=== PATIENT | male | born 1960 | race Caucasian/White ===

== ENCOUNTER 2019-03-09 22:33 | Inpatient (IN) | payer BC, OTHER, SELFPAY ==
[2019-03-09 23:00] VITALS: BP 127/75; PULSE 68; RESP 24; TEMP 36.6; O2SAT 96; BMI 39.9
[2019-03-09 23:52] LABS: Add Manual Diff / Slide Review NO; Alanine Aminotransferase 33 IU/L (21-72); Albumin 4.3 g/dL (3.5-5.0); Albumin Globulin Ratio 1.4 (1.0-2.8); Alkaline Phosphatase 73 U/L (38-126); Aspartate Aminotransferase 24 IU/L (17-59); BUN Creatinine Ratio 18.9 (6-22); Basophils Absolute Auto 0 /uL (0-100); Basophils Percent Auto 0.4 % (0-2); Bilirubin Total 0.7 mg/dL (0.2-1.3); Blood Urea Nitrogen 17 mg/dL (9-20); Calcium 9.4 mg/dL (8.4-10.2); Carbon Dioxide 23 mmol/L (22-32); Chloride 104 mmol/L (98-107); Eosinophils Absolute Auto 0 /uL (0-450); Eosinophils Percent Auto 0.3 % (2-4); Estimated Glomerular Filt Rate > 60.0 mL/min (>60); Glucose 227 mg/dL (70-100); HEMOLYSIS 17 (0-50); Hematocrit 46.7 % (41-53); Lymphocytes Absolute Auto 1600 /uL (1100-4500); Mean Corpuscular HGB Conc 34.2 % (30-36); Mean Corpuscular Hemoglobin 29.5 PG (26-34); Mean Corpuscular Volume 86.2 fL (80-100); Monocytes Absolute Auto 600 /uL (0-900); Monocytes Percent Auto 4.7 % (3-14); Neutrophils Absolute Auto 11200 /uL (1500-7000); Neutrophils Percent Auto 82.6 % (50-75); Platelet Count 219 X10^3/uL (150-400); Red Blood Cell Count 5.42 X10^6/uL (4.5-5.9); Red Cell Distribution Width 13.4 % (11.6-14.8); Sodium 139 mmol/L (137-145); Total Protein 7.3 g/dL (6.3-8.2); White Blood Cell Count 13.5 X10^3/uL (4.5-11.0)
[2019-03-10] VITALS (13 sets, daily range): BP systolic 123–172; BP diastolic 66–98; PULSE 61–105; RESP 15–22; TEMP 36.7–36.9; O2SAT 92–98; BMI 39.9
[2019-03-10] MEDS: SODIUM CHLORIDE 0.9% 1,000 ML 150 ML IV
--- NOTE | 2019-03-10 00:07 | ED.ABDPAIN ---
HPI - Abdominal Pain General Chief Complaint: Abdominal Pain Stated Complaint: NAUSEA, VOMITING Time Seen by Provider: 03/10/19 00:07 Source: patient Mode of arrival: ambulatory Limitations: no limitations History of Present Illness HPI narrative: The patient was well when he woke this morning. He went out for lunch. He had chicken fajitas. Within 1/2 hour after eating a lunch, he developed epigastric pain with nausea and vomiting. He is experienced several episodes of emesis throughout the day. He has severe upper abdominal pain. He has no associated back pain. He has no diarrhea. He has not been experiencing fever or chills. He has no known gallbladder disease, liver disease or stomach problems. He has no prior history of abdomen/pelvis surgeries. He has no dysuria or hematuria. He has no kidney disease. He has not been experiencing fever chills. Related Data Previous Rx's Medication Instructions Recorded famciclovir 250 mg PO SEE INSTRUCTIONS PRN #30 02/24/17 tab hydrochlorothiazide 25 mg PO QDAY #30 tab 02/24/17 lisinopril [Prinivil] 20 mg PO Q DAY #30 tab 02/24/17 Allergies Allergy/AdvReac Type Severity Reaction Status Date / Time DAIRY Allergy Mild MILK,CHEESE- Uncoded 02/03/18 12:03 COUGH NO KNOWN DRUG ALLERGIES - Allergy Unknown Uncoded 02/03/18 12:03 NKDA Review of Systems Review of Systems ROS Unobtainable: All systems reviewed & are unremarkable except as noted in HPI and below Constitutional Denies chills, Denies fever(s), Denies headache(s), Denies lethargy and Denies weakness Eyes Denies change in vision ENT Ears, Nose, Mouth, and Throat: Denies change in voice, Denies dizziness, Denies headache(s), Denies mouth pain, Denies neck pain, Denies sore throat and Denies throat swelling Cardiovascular Denies chest pain, Denies irregular heart rhythm, Denies lightheadedness, Denies palpitations, Denies dyspnea, Denies dyspnea on exertion and Denies orthopnea Respiratory Denies cough, Denies dyspnea, Denies dyspnea on exertion and Denies wheezing Gastrointestinal Gastrointestinal: Reports abdominal pain (Upper abdomen), Denies change in bowel habits, Denies diarrhea, Reports nausea and Reports vomiting Genitourinary Denies genital pain, Denies dysuria and Denies flank pain Musculoskeletal Denies back pain and Denies neck pain Integumentary/Breasts Denies pruritus, Denies erythema, Denies rash and Denies wounds Neurologic Denies confusion, Denies dizziness, Denies headache(s) and Denies weakness Psychiatric Denies anxiety, Denies confusion and Denies depression Endocrine Denies palpitations Allergic/Immunologic Denies throat swelling and Denies wheezing [facility] Medical History (Updated 03/10/19 @ 04:48 by Mckay Uriostegui MD) Essential hypertension (Acute) Hypertension (Acute) Surgical History History of umbilical hernia repair (Acute) Family History Child Age: 30 Bipolar 1 disorder Father Diabetes mellitus Mother Age: 84 Hypertension Stroke Sister Age: 59 Diabetes mellitus Family History Child Age: 30 Bipolar 1 disorder Father Diabetes mellitus Mother Age: 84 Hypertension Stroke Sister Age: 59 Diabetes mellitus Exam Initial Vital Signs Initial Vital Signs: Vital Signs Temperature 97.9 F 03/09/19 23:00 Pulse Rate 68 03/09/19 23:00 Respiratory Rate 24 03/09/19 23:00 Blood Pressure 127/75 03/09/19 23:00 Pulse Oximetry 96 03/09/19 23:00 Const General: cooperative and well developed Nutritional Appearance: well nourished Orientation: alert, awake, oriented x3 and not confused [facility] Head: normocephalic and atraumatic Face and sinus: no sinus tenderness and No dry mucous membranes Mouth: oral mucosae normal and moist mucous membranes Teeth and gingiva: dentition normal Throat: tonsils normal and uvula midline Eyes Conjunctivae: conjunctivae normal Sclera: sclerae normal Neck Neck: supple and No lymphadenopathy Resp Effort & Inspection: normal respiratory effort, able to speak in complete sentences, no respiratory distress and no use of accessory muscles Auscultation: clear to auscultation bilaterally, no rales, no rhonchi and no wheezes Cardio Rate: regular rate Rhythm: regular rhythm Heart Sounds: no click, no gallops, no murmurs and no rubs Pulses: normal peripheral pulses GI Inspection: non-distended Palpation: soft, no hepatosplenomegaly, No pulsatile mass and tender (Marked epigastric tenderness with guarding.) Auscultation: normal bowel sounds Back/Spine/Pelvis Back: No CVA tenderness Skin General: no rashes or lesions noted, No jaundice and No petechiae Neuro General: alert, oriented x3, gait normal and no focal motor deficits Speech: speech normal Extrem General: full ROM, no clubbing, cyanosis or edema, no pedal edema and no calf tenderness Course Course Narrative: The patient has improved with IV fluids in the medications for pain and nausea. He has received Toradol with 3 doses of Dilaudid prior to admission. Labs, and radiologic processes indicate pancreatitis. There is no obvious acute cholecystitis. The patient is ongoing bowel rest and pain medications. I discussed his case with the hospitalist, EDGAR Amin. The patient will be admitted for bowel rest and symptomatic treatment. Orders Ordered: ED Orders 03/09/19 23:30 Complete Blood Count AUTO DIFF Stat Comprehensive Metabolic Panel Stat Lipase Stat 03/10/19 01:42 US abdomen limited Stat 03/10/19 02:30 CT abdomen pelvis w con Stat 03/10/19 04:19 Education, smoking cessation ONGOING 03/10/19 05:00 Complete Blood Count AUTO DIFF Routine Comprehensive Metabolic Panel Routine Acetaminophen (Tylenol) 650 mg PO Q6HR PRN PRN Reason: As Needed for Fever/Mild Pain Hydromorphone HCl (Dilaudid) 1 mg IV Q2H PRN PRN Reason: Pain, Severe (7-10) Sodium Chloride (Normal Saline 0.9%) 1,000 mls @ 150 mls/hr IV CONT [facility] Last Admin: 03/10/19 00:00 Dose: 150 mls/hr Sodium Chloride (Normal Saline 0.9%) 1,000 mls @ 100 mls/hr IV CONT KIERA Ketorolac Tromethamine (Toradol) 30 mg IV Q6HR PRN PRN Reason: Pain, Moderate (4-6) Stop: 03/15/19 04:21 Lisinopril (Zestril) 20 mg PO Q DAY [facility] Naloxone HCl (Narcan) 0.2 mg IV Q2MIN PRN PRN Reason: Opiate Reversal Ondansetron HCl (Zofran) 4 mg IV Q6HR KIERA Discontinued Medications Hydromorphone HCl (Dilaudid) 1 mg IV NOW ONE Stop: 03/10/19 00:41 Last Admin: 03/10/19 00:42 Dose: 1 mg Hydromorphone HCl (Dilaudid) 1 mg IV NOW ONE Stop: 03/10/19 01:28 Last Admin: 03/10/19 01:30 Dose: 1 mg Hydromorphone HCl (Dilaudid) 1 mg IV NOW ONE Stop: 03/10/19 04:03 Last Admin: 03/10/19 04:21 Dose: 1 mg Ketorolac Tromethamine (Toradol) 30 mg IV NOW ONE Stop: 03/10/19 00:08 Last Admin: 03/10/19 00:13 Dose: 30 mg Ondansetron HCl (Zofran) 4 mg IV NOW ONE Stop: 03/10/19 00:08 Last Admin: 03/10/19 00:13 Dose: 4 mg Pantoprazole Sodium (Protonix) 40 mg IV NOW ONE Stop: 03/10/19 00:10 Last Admin: 03/10/19 00:14 Dose: 40 mg Vital Signs - 8 hr 03/09/19 23:00 03/10/19 00:53 03/10/19 02:00 Temperature 97.9 F Pulse Rate 68 61 69 Respiratory Rate 24 20 16 Blood Pressure 127/75 Blood Pressure [Left Arm] 172/98 H 153/95 H Pulse Oximetry 96 97 94 03/10/19 04:02 Temperature Pulse Rate 72 Respiratory Rate 15 Blood Pressure Blood Pressure [Left Arm] 157/93 H Pulse Oximetry 95 MDM - Abdominal Pain Lab Data Result diagrams: 03/09/19 23:30 03/09/19 23:30 Lab Results 03/09/19 03/09/19 Range/Units 23:30 23:30 WBC 13.5 H (4.5-11.0) X10^3/uL RBC 5.42 (4.5-5.9) X10^6/uL Hgb 16.0 (13.5-17.5) g/dL Hct 46.7 (41-53) % MCV 86.2 (80-100) fL MCH 29.5 (26-34) PG MCHC 34.2 (30-36) % RDW 13.4 (11.6-14.8) % Plt Count 219 (150-400) X10^3/uL Neut % (Auto) 82.6 H (50-75) % Lymph % (Auto) 12.0 L (25-40) % [place] % (Auto) 4.7 (3-14) % Eos % (Auto) 0.3 L (2-4) % Baso % (Auto) 0.4 (0-2) % Neut # (Auto) 51976 H (4151-6520) /uL Lymph # (Auto) 1600 (1695-8448) /uL [place] # (Auto) 600 (0-900) /uL Eos # (Auto) 0 (0-450) /uL Baso # (Auto) 0 (0-100) /uL Sodium 139 (137-145) mmol/L Potassium 4.0 (3.4-5.1) mmol/L Chloride 104 (98-107) mmol/L Carbon Dioxide 23 (22-32) mmol/L BUN 17 (9-20) mg/dL Creatinine 0.90 (0.66-1.25) mg/dL Estimated GFR > 60.0 (>60) mL/min BUN/Creatinine Ratio 18.9 (6-22) Glucose 227 H (70-100) mg/dL Calcium 9.4 (8.4-10.2) mg/dL Total Bilirubin 0.7 (0.2-1.3) mg/dL AST 24 (17-59) IU/L ALT 33 (21-72) IU/L Alkaline Phosphatase 73 (38-126) U/L Total Protein 7.3 (6.3-8.2) g/dL Albumin 4.3 (3.5-5.0) g/dL Globulin 3.0 (1.7-4.1) g/dL Albumin/Globulin Ratio 1.4 (1.0-2.8) Lipase 45584 H (23-300) U/L Imaging Data US - abdomen: Radiologist's impression: Normal [place] is a pancreas. Fatty infiltration of the liver. 2.5 mm borderline thickness of the gallbladder wall. The proximal CBD has a diameter of [address] scan - abdomen: Radiologist's impression: Pancreatic fullness and retroperitoneal peripancreatic stranding and fluid/effusion of the left anterior pararenal space. Fluid along the left pericolic gutter. No necrosis mention. No abscess seen. Critical Care Time Critical Care Time: Yes Total Critical Care Time: 45 Attestation: Time included the initial assessment, evaluation by labs, and a series of radiologic evaluations. Time included management of patient's symptoms. Hospitalist was consulted for admission. Discharge Plan Departure Patient Disposition: Admitted as Observation Clinical Impression: Acute hyperglycemia Pancreatitis Qualifiers: Chronicity: acute Pancreatitis type: unspecified pancreatitis type Acute pancreatitis complication: no infection or necrosis Qualified Code(s): K85.90 - Acute pancreatitis without necrosis or infection, unspecified Discharge Date/Time: 03/10/19 04:16 Admit Date/Time: 03/10/19 04:15 Admit Provider: Ashley Amin
[2019-03-10 00:11] LABS: Lipase 14280 U/L (23-300)
[2019-03-10] MEDS: KETOROLAC 60 MG/2 ML VIAL 30 MG IV (00:13)
[2019-03-10] MEDS: ONDANSETRON 4 MG/2 ML INJ IV (00:13)
[2019-03-10] MEDS: PANTOPRAZOLE 40 MG VIAL IV (00:14)
[2019-03-10] MEDS: HYDROMORPHONE 1 MG INJ IV ×9 (00:42→23:48)
--- NOTE | 2019-03-10 00:45 | ED_ITS ---
HPI - Abdominal Pain General Chief Complaint: Abdominal Pain Stated Complaint: NAUSEA, VOMITING Time Seen by Provider: 03/10/19 00:07 Source: patient Mode of arrival: ambulatory Limitations: no limitations History of Present Illness HPI narrative: The patient was well when he woke this morning. He went out for lunch. He had chicken fajitas. Within 1/2 hour after eating a lunch, he developed epigastric pain with nausea and vomiting. He is experienced several episodes of emesis throughout the day. He has severe upper abdominal pain. He has no associated back pain. He has no diarrhea. He has not been experiencing fever or chills. He has no known gallbladder disease, liver disease or stomach problems. He has no prior history of abdomen/pelvis surgeries. He has no dysuria or hematuria. He has no kidney disease. He has not been experiencing fever chills. Related Data Previous Rx's Medication Instructions Recorded famciclovir 250 mg PO SEE INSTRUCTIONS PRN #30 02/24/17 tab hydrochlorothiazide 25 mg PO QDAY #30 tab 02/24/17 lisinopril [Prinivil] 20 mg PO Q DAY #30 tab 02/24/17 Allergies Allergy/AdvReac Type Severity Reaction Status Date / Time DAIRY Allergy Mild MILK,CHEESE- Uncoded 02/03/18 12:03 COUGH NO KNOWN DRUG ALLERGIES - Allergy Unknown Uncoded 02/03/18 12:03 NKDA Review of Systems Review of Systems ROS Unobtainable: All systems reviewed & are unremarkable except as noted in HPI and below Constitutional Denies chills, Denies fever(s), Denies headache(s), Denies lethargy and Denies weakness Eyes Denies change in vision ENT Ears, Nose, Mouth, and Throat: Denies change in voice, Denies dizziness, Denies headache(s), Denies mouth pain, Denies neck pain, Denies sore throat and Denies throat swelling Cardiovascular Denies chest pain, Denies irregular heart rhythm, Denies lightheadedness, Denies palpitations, Denies dyspnea, Denies dyspnea on exertion and Denies orthopnea Respiratory Denies cough, Denies dyspnea, Denies dyspnea on exertion and Denies wheezing Gastrointestinal Gastrointestinal: Reports abdominal pain (Upper abdomen), Denies change in bowel habits, Denies diarrhea, Reports nausea and Reports vomiting Genitourinary Denies genital pain, Denies dysuria and Denies flank pain Musculoskeletal Denies back pain and Denies neck pain Integumentary/Breasts Denies pruritus, Denies erythema, Denies rash and Denies wounds Neurologic Denies confusion, Denies dizziness, Denies headache(s) and Denies weakness Psychiatric Denies anxiety, Denies confusion and Denies depression Endocrine Denies palpitations Allergic/Immunologic Denies throat swelling and Denies wheezing [facility] Medical History (Updated 03/10/19 @ 04:48 by Mckay Uriostegui MD) Essential hypertension (Acute) Hypertension (Acute) Surgical History History of umbilical hernia repair (Acute) Family History Child Age: 30 Bipolar 1 disorder Father Diabetes mellitus Mother Age: 84 Hypertension Stroke Sister Age: 59 Diabetes mellitus Family History Child Age: 30 Bipolar 1 disorder Father Diabetes mellitus Mother Age: 84 Hypertension Stroke Sister Age: 59 Diabetes mellitus Exam Initial Vital Signs Initial Vital Signs: Vital Signs Temperature 97.9 F 03/09/19 23:00 Pulse Rate 68 03/09/19 23:00 Respiratory Rate 24 03/09/19 23:00 Blood Pressure 127/75 03/09/19 23:00 Pulse Oximetry 96 03/09/19 23:00 Const General: cooperative and well developed Nutritional Appearance: well nourished Orientation: alert, awake, oriented x3 and not confused [facility] Head: normocephalic and atraumatic Face and sinus: no sinus tenderness and No dry mucous membranes Mouth: oral mucosae normal and moist mucous membranes Teeth and gingiva: dentition normal Throat: tonsils normal and uvula midline Eyes Conjunctivae: conjunctivae normal Sclera: sclerae normal Neck Neck: supple and No lymphadenopathy Resp Effort & Inspection: normal respiratory effort, able to speak in complete sentences, no respiratory distress and no use of accessory muscles Auscultation: clear to auscultation bilaterally, no rales, no rhonchi and no wheezes Cardio Rate: regular rate Rhythm: regular rhythm Heart Sounds: no click, no gallops, no murmurs and no rubs Pulses: normal peripheral pulses GI Inspection: non-distended Palpation: soft, no hepatosplenomegaly, No pulsatile mass and tender (Marked epigastric tenderness with guarding.) Auscultation: normal bowel sounds Back/Spine/Pelvis Back: No CVA tenderness Skin General: no rashes or lesions noted, No jaundice and No petechiae Neuro General: alert, oriented x3, gait normal and no focal motor deficits Speech: speech normal Extrem General: full ROM, no clubbing, cyanosis or edema, no pedal edema and no calf tenderness Course Course Narrative: The patient has improved with IV fluids in the medications for pain and nausea. He has received Toradol with 3 doses of Dilaudid prior to adm ission. Labs, and radiologic processes indicate pancreatitis. There is no obvious acute cholecystitis. The patient is ongoing bowel rest and pain medications. I discussed his case with the hospitalist, EDGAR Amin. The patient will be admitted for bowel rest and symptomatic treatment. Orders Ordered: ED Orders 03/09/19 23:30 Complete Blood Count AUTO DIFF Stat Comprehensive Metabolic Panel Stat Lipase Stat 03/10/19 01:42 US abdomen limited Stat 03/10/19 02:30 CT abdomen pelvis w con Stat 03/10/19 04:19 Education, smoking cessation ONGOING 03/10/19 05:00 Complete Blood Count AUTO DIFF Routine Comprehensive Metabolic Panel Routine Acetaminophen (Tylenol) 650 mg PO Q6HR PRN PRN Reason: As Needed for Fever/Mild Pain Hydromorphone HCl (Dilaudid) 1 mg IV Q2H PRN PRN Reason: Pain, Severe (7-10) Sodium Chloride (Normal Saline 0.9%) 1,000 mls @ 150 mls/hr IV CONT [facility] Last Admin: 03/10/19 00:00 Dose: 150 mls/hr Sodium Chloride (Normal Saline 0.9%) 1,000 mls @ 100 mls/hr IV CONT [facility] Ketorolac Tromethamine (Toradol) 30 mg IV Q6HR PRN PRN Reason: Pain, Moderate (4-6) Stop: 03/15/19 04:21 Lisinopril (Zestril) 20 mg PO Q DAY [facility] Naloxone HCl (Narcan) 0.2 mg IV Q2MIN PRN PRN Reason: Opiate Reversal Ondansetron HCl (Zofran) 4 mg IV Q6HR KIERA Discontinued Medications Hydromorphone HCl (Dilaudid) 1 mg IV NOW ONE Stop: 03/10/19 00:41 Last Admin: 03/10/19 00:42 Dose: 1 mg Hydromorphone HCl (Dilaudid) 1 mg IV NOW ONE Stop: 03/10/19 01:28 Last Admin: 03/10/19 01:30 Dose: 1 mg Hydromorphone HCl (Dilaudid) 1 mg IV NOW ONE Stop: 03/10/19 04:03 Last Admin: 03/10/19 04:21 Dose: 1 mg Ketorolac Tromethamine (Toradol) 30 mg IV NOW ONE Stop: 03/10/19 00:08 Last Admin: 03/10/19 00:13 Dose: 30 mg Ondansetron HCl (Zofran) 4 mg IV NOW ONE Stop: 03/10/19 00:08 Last Admin: 03/10/19 00:13 Dose: 4 mg Pantoprazole Sodium (Protonix) 40 mg IV NOW ONE Stop: 03/10/19 00:10 Last Admin: 03/10/19 00:14 Dose: 40 mg Vital Signs - 8 hr 03/09/19 23:00 03/10/19 00:53 03/10/19 02:00 Temperature 97.9 F Pulse Rate 68 61 69 Respiratory Rate 24 20 16 Blood Pressure 127/75 Blood Pressure [Left Arm] 172/98 H 153/95 H Pulse Oximetry 96 97 94 03/10/19 04:02 Temperature Pulse Rate 72 Respiratory Rate 15 Blood Pressure Blood Pressure [Left Arm] 157/93 H Pulse Oximetry 95 MDM - Abdominal Pain Lab Data Result diagrams: 03/09/19 23:30 03/09/19 23:30 Lab Results 03/09/19 03/09/19 Range/Units 23:30 23:30 WBC 13.5 H (4.5-11.0) X10^3/uL RBC 5.42 (4.5-5.9) X10^6/uL Hgb 16.0 (13.5-17.5) g/dL Hct 46.7 (41-53) % MCV 86.2 (80-100) fL MCH 29.5 (26-34) PG MCHC 34.2 (30-36) % RDW 13.4 (11.6-14.8) % Plt Count 219 (150-400) X10^3/uL Neut % (Auto) 82.6 H (50-75) % Lymph % (Auto) 12.0 L (25-40) % [place] % (Auto) 4.7 (3-14) % Eos % (Auto) 0.3 L (2-4) % Baso % (Auto) 0.4 (0-2) % Neut # (Auto) 82973 H (6659-4652) /uL Lymph # (Auto) 1600 (2434-6784) /uL [place] # (Auto) 600 (0-900) /uL Eos # (Auto) 0 (0-450) /uL Baso # (Auto) 0 (0-100) /uL Sodium 139 (137-145) mmol/L Potassium 4.0 (3.4-5.1) mmol/L Chloride 104 (98-107) mmol/L Carbon Dioxide 23 (22-32) mmol/L BUN 17 (9-20) mg/dL Creatinine 0.90 (0.66-1.25) mg/dL Estimated GFR > 60.0 (>60) mL/min BUN/Creatinine Ratio 18.9 (6-22) Glucose 227 H (70-100) mg/dL Calcium 9.4 (8.4-10.2) mg/dL Total Bilirubin 0.7 (0.2-1.3) mg/dL AST 24 (17-59) IU/L ALT 33 (21-72) IU/L Alkaline Phosphatase 73 (38-126) U/L Total Protein 7.3 (6.3-8.2) g/dL Albumin 4.3 (3.5-5.0) g/dL Globulin 3.0 (1.7-4.1) g/dL Albumin/Globulin Ratio 1.4 (1.0-2.8) Lipase 39358 H (23-300) U/L Imaging Data US - abdomen: Radiologist's impression: Normal [place] is a pancreas. Fatty infiltration of the liver. 2.5 mm borderline thickness of the gallbladder wall. The proximal CBD has a diameter of [address] scan - abdomen: Radiologist's impression: Pancreatic fullness and retroperitoneal peripancreatic stranding and fluid/effusion of the left anterior pararenal space. Fluid along the left pericolic gutter. No necrosis mention. No abscess seen. Critical Care Time Critical Care Time: Yes Total Critical Care Time: 45 Attestation: Time included the initial assessment, evaluation by labs, and a series of radiologic evaluations. Time included management of patient's symptoms. Hospitalist was consulted for admission. Discharge Plan Departure Patient Disposition: Admitted as Observation Clinical Impression: Acute hyperglycemia Pancreatitis Qualifiers: Chronicity: acute Pancreatitis type: unspecified pancreatitis type Acute pancreatitis complication: no infection or necrosis Qualified Code(s): K85.90 - Acute pancreatitis without necrosis or infection, unspecified Discharge Date/Time: 03/10/19 04:16 Admit Date/Time: 03/10/19 04:15 Admit Provider: Ashley Amin
--- NOTE | 2019-03-10 01:42 | DI.US.S_ITS ---
PROCEDURE: US ABDOMEN LIMITED INDICATIONS: PANCREATITIS TECHNIQUE: Real-time focused scanning was performed of the abdomen, with image documentation. COMPARISON: None. FINDINGS: Liver is normal in size Liver has a diffusely increased echotexture which typically represents fatty infiltration; however, finding is nonspecific and other etiologies including hepatic cirrhosis can have a similar appearance. Please correlate with clinical and laboratory findings. Gallbladder is sonographically normal. No gallstones. No gallbladder wall thickening. No pericholecystic fluid. No sonographic Rios sign. Biliary tree is nondilated. Common bile duct measures 5.9 mm in diameter. The pancreas is sonographically normal. Body the pancreas is partially visualized and is normal in appearance where visualized. Tail of pancreas is not visualized and cannot be evaluated. IMPRESSION: 1. No sonographic evidence of cholelithiasis. 2. Echogenic liver. Finding typically represents fatty infiltration; however, finding is nonspecific and correlation with clinical and laboratory findings is recommended to exclude other etiologies including hepatic cirrhosis. Dictated by: Marlena Ugarte MD, PhD on 03/10/2019 at 9:04 Approved by: Marlena Ugarte MD, PhD on 03/10/2019 at 9:05
--- NOTE | 2019-03-10 02:30 | DI.CT.S_ITS ---
PROCEDURE: CT ABDOMEN PELVIS W CON INDICATIONS: Pancreatitis TECHNIQUE: After the administration of intravenous contrast, 5 mm thick sections acquired from the diaphragm to the symphysis. 5 mm coronal and sagittal reformats were acquired. For radiation dose reduction, the following was used: automated exposure control, adjustment of mA and/or kV according to patient size. COMPARISON: [facility], US ABDOMEN LIMITED, 03/10/2019, 2:03. FINDINGS: Image quality: Excellent. ABDOMEN: Lung bases: Lung bases are clear. Heart size is normal. Solid organs: Liver demonstrates decreased attenuation consistent with fatty infiltration. Gallbladder is normal. Biliary system is non dilated. There is stranding around the pancreatic tail. A moderate amount of peripancreatic fluid is present in the left upper quadrant and a trace amount of free fluid within the left paraglottic gutter. Spleen is normal in size and enhancement. There is a 1.9 cm splenule. No adrenal nodules. Kidneys demonstrate normal size and enhancement, without hydronephrosis. Peritoneum and bowel: Bowel loops demonstrate normal wall thickness and caliber. No free fluid or air. Nodes and vessels: No retroperitoneal or mesenteric adenopathy by size criteria. Aorta and inferior vena cava are normal in size. Miscellaneous: Tiny fat containing umbilical hernia. PELVIS: Genitourinary: Bladder wall thickness is normal. Miscellaneous: No inguinal hernias or adenopathy. Bones: No suspicious bony lesions. No vertebral body compression fractures. Transitional anatomy noted at the lumbosacral junction. IMPRESSION: 1. The CT findings are consistent with acute pancreatitis. There is stranding and fluid around the pancreatic tail. No pancreatic necrosis or pseudocyst. 2. Hepatic steatosis. No significant discrepancy with the production shift supervisor radiology preliminary report. Dictated by: Ally Garner M.D. on 03/10/2019 at 8:10 Approved by: Ally Garner M.D. on 03/10/2019 at 8:16
--- NOTE | 2019-03-10 04:24 | PM.HP.1 ---
History of Present Illness Date Patient Seen: 03/10/19 Time Patient Seen: 04:00 Chief complaint: NAUSEA, VOMITING Narrative: Vamsi Cabello is a pleasant 58 y.o. male with a minimal medical history including hypertension who presented to the ED with abdominal pain he has had since 1400 one day ago. He thought he had food poisoning from [place] food he had eaten for lunch. He states the pain is located in his epigastric area and had been worsening since the initial onset. in the room states he vomited [address] over to [place] from [place]. States the vomitus was what he had eaten for lunch. He states a 6-7/10 level of pain and is distressed in the room when I was taking his history. Patient states he has one to two alcoholic drinks every other week and denies binge drinking. In the ED, he has a mildly elevated white count of 13.5 and a very elevated lipase of 14,280. Patient History Medical History (Updated 03/10/19 @ 04:48 by Mckay Uriostegui MD) Essential hypertension (Acute) Hypertension (Acute) Surgical History History of umbilical hernia repair (Acute) Family History Child Age: 30 Bipolar 1 disorder Father Diabetes mellitus Mother Age: 84 Hypertension Stroke Sister Age: 59 Diabetes mellitus Family & Social History Family History Child Age: 30 Bipolar 1 disorder Father Diabetes mellitus Mother Age: 84 Hypertension Stroke Sister Age: 59 Diabetes mellitus Meds Home Medications Medication Instructions Recorded Confirmed Type famciclovir 250 mg PO SEE INSTRUCTIONS PRN #30 02/24/17 Rx tab hydrochlorothiazide 25 mg PO QDAY #30 tab 02/24/17 Rx lisinopril [Prinivil] 20 mg PO Q DAY #30 tab 02/24/17 Rx Allergies Allergy/AdvReac Type Severity Reaction Status Date / Time DAIRY Allergy Mild MILK,CHEESE- Uncoded 02/03/18 12:03 COUGH NO KNOWN DRUG ALLERGIES - Allergy Unknown Uncoded 02/03/18 12:03 NKDA Review of Systems Review of Systems Patient has upper left mid epigastric pain and bloating, vomited X 4, and had chills when arriving in the ED. Denies changes in appetite or food preferences, difficulty swallowing, shortness of breath, chest pain, diarrhea or constipation. Exam Vital Signs (past 8 hours): - 03/09/19 23:00 03/10/19 00:53 03/10/19 02:00 Temperature 97.9 F Pulse Rate 68 61 69 Respiratory Rate 24 20 16 Blood Pressure 127/75 Blood Pressure [Left Arm] 172/98 H 153/95 H Pulse Oximetry 96 97 94 03/10/19 04:02 Temperature Pulse Rate 72 Respiratory Rate 15 Blood Pressure Blood Pressure [Left Arm] 157/93 H Pulse Oximetry 95 Oxygen Delivery Method Room Air Narrative Exam Narrative: Gen: Alert, oriented morbidly obese 58 y.o. male, mildly distressed HEENT: Head is normocephalic, atraumatic, conjunctiva clear, sclera non-icteric, oral and nasal mucosa pink and moist Neck: supple, no JVD or tracheal deviation Respirations: lungs sounds are clear bilaterally, no wheezes or rhonchi Abdomen: distended and tender to deep palpation in the upper right quadrant to center epigastric area, hypoactive bowel tones. Skin: Dry and intact with no lesions or rashes Neuro: alert and oriented X 4 with no focal deficits Extremities: independently ambulatory, has full range of motion in all 4 extremities Psyche: Normal mood and affect, cooperative Objective Labs Result Diagrams: 03/09/19 23:30 03/09/19 23:30 Labs: Laboratory Results - last 24 hr 03/09/19 03/09/19 23:30 23:30 WBC 13.5 H RBC 5.42 Hgb 16.0 Hct 46.7 MCV 86.2 MCH 29.5 MCHC 34.2 RDW 13.4 Plt Count 219 Neut % (Auto) 82.6 H Lymph % (Auto) 12.0 L [place] % (Auto) 4.7 Eos % (Auto) 0.3 L Baso % (Auto) 0.4 Neut # (Auto) 69704 H Lymph # (Auto) 1600 [place] # (Auto) 600 Eos # (Auto) 0 Baso # (Auto) 0 Sodium 139 Potassium 4.0 Chloride 104 Carbon Dioxide 23 BUN 17 Creatinine 0.90 Estimated GFR > 60.0 BUN/Creatinine Ratio 18.9 Glucose 227 H Calcium 9.4 Total Bilirubin 0.7 AST 24 ALT 33 Alkaline Phosphatase 73 Total Protein 7.3 Albumin 4.3 Globulin 3.0 Albumin/Globulin Ratio 1.4 Lipase 90381 H Assessment & Plan Assessment & Plan narrative: Vamsi Cabello will be placed into observation for bowel rest and pain control. 1. Acute pancreatitis, new and acute, present on admission - He will be NPO with the intention of advancing his diet once his pain is adequately controlled. - IV zofran for nausea and/or vomiting 1. Essential hypertension stable and present on admission - Continue home dose of lisinopril. Patient states he takes twice daily and has not taken this evening's dose. Patient is placed into observation as it is anticipated his stay will not exceed 2 midnights 0.45 NS at 100 ml/hour, NPO except chips and meds, CMP 5 am draw VTE prophylaxis: Bilateral SCDs Code Status: Full code Med Reconciliation: Medications reviewed with the patient and confirmed. Quality VTE Deep Vein Thrombosis/Pulmonary Embolism Present on Admission: No
--- NOTE | 2019-03-10 04:44 | P.HP_ITS ---
History of Present Illness Date Patient Seen: 03/10/19 Time Patient Seen: 04:00 Chief complaint: NAUSEA, VOMITING Narrative: Vamsi Cabello is a pleasant 58 y.o. male with a minimal medical history including hypertension who presented to the ED with abdominal pain he has had since 1400 one day ago. He thought he had food poisoning from [place] food he had eaten for lunch. He states the pain is located in his epigastric area and had been worsening since the initial onset. in the room states he vomited [address] over to [place] from [place]. States the vomitus was what he had eaten for lunch. He states a 6-7/10 level of pain and is distressed in the room when I was taking his history. Patient states he has one to two alcoholic drinks every other week and denies bi nge drinking. In the ED, he has a mildly elevated white count of 13.5 and a very elevated lipase of 14,280. Patient History Medical History (Updated 03/10/19 @ 04:48 by Mckay Uriostegui MD) Essential hypertension (Acute) Hypertension (Acute) Surgical History History of umbilical hernia repair (Acute) Family History Child Age: 30 Bipolar 1 disorder Father Diabetes mellitus Mother Age: 84 Hypertension Stroke Sister Age: 59 Diabetes mellitus Family & Social History Family History Child Age: 30 Bipolar 1 disorder Father Diabetes mellitus Mother Age: 84 Hypertension Stroke Sister Age: 59 Diabetes mellitus Meds Home Medications Medication Instructions Recorded Confirmed Type famciclovir 250 mg PO SEE INSTRUCTIONS PRN #30 02/24/17 Rx tab hydrochlorothiazide 25 mg PO QDAY #30 tab 02/24/17 Rx lisinopril [Prinivil] 20 mg PO Q DAY #30 tab 02/24/17 Rx Allergies Allergy/AdvReac Type Severity Reaction Status Date / Time DAIRY Allergy Mild MILK,CHEESE- Uncoded 02/03/18 12:03 COUGH NO KNOWN DRUG ALLERGIES - Allergy Unknown Uncoded 02/03/18 12:03 NKDA Review of Systems Review of Systems Patient has upper left mid epigastric pain and bloating, vomited X 4, and had chills when arriving in the ED. Denies changes in appetite or food preferences, difficulty swallowing, shortness of breath, chest pain, diarrhea or constip ation. Exam Vital Signs (past 8 hours): - 03/09/19 23:00 03/10/19 00:53 03/10/19 02:00 Temperature 97.9 F Pulse Rate 68 61 69 Respiratory Rate 24 20 16 Blood Pressure 127/75 Blood Pressure [Left Arm] 172/98 H 153/95 H Pulse Oximetry 96 97 94 03/10/19 04:02 Temperature Pulse Rate 72 Respiratory Rate 15 Blood Pressure Blood Pressure [Left Arm] 157/93 H Pulse Oximetry 95 Oxygen Delivery Method Room Air Narrative Exam Narrative: Gen: Alert, oriented morbidly obese 58 y.o. male, mildly distressed HEENT: Head is normocephalic, atraumatic, conjunctiva clear, sclera non-icteric, oral and nasal mucosa pink and moist Neck: supple, no JVD or tracheal deviation Respirations: lungs sounds are clear bilaterally, no wheezes or rhonchi Abdomen: distended and tender to deep palpation in the upper right quadrant to center epigastric area, hypoactive bowel tones. Skin: Dry and intact with no lesions or rashes Neuro: alert and oriented X 4 with no focal deficits Extremities: independently ambulatory, has full range of motion in all 4 extremities Psyche: Normal mood and affect, cooperative Objective Labs Result Diagrams: 03/09/19 23:30 03/09/19 23:30 Labs: Laboratory Results - last 24 hr 03/09/19 03/09/19 23:30 23:30 WBC 13.5 H RBC 5.42 Hgb 16.0 Hct 46.7 MCV 86.2 MCH 29.5 MCHC 34.2 RDW 13.4 Plt Count 219 Neut % (Auto) 82.6 H Lymph % (Auto) 12.0 L [place] % (Auto) 4.7 Eos % (Auto) 0.3 L Baso % (Auto) 0.4 Neut # (Auto) 53869 H Lymph # (Auto) 1600 [place] # (Auto) 600 Eos # (Auto) 0 Baso # (Auto) 0 Sodium 139 Potassium 4.0 Chloride 104 Carbon Dioxide 23 BUN 17 Creatinine 0.90 Estimated GFR > 60.0 BUN/Creatinine Ratio 18.9 Glucose 227 H Calcium 9.4 Total Bilirubin 0.7 AST 24 ALT 33 Alkaline Phosphatase 73 Total Protein 7.3 Albumin 4.3 Globulin 3.0 Albumin/Globulin Ratio 1.4 Lipase 26405 H Assessment & Plan Assessment & Plan narrative: Vamsi Cabello will be placed into observation for bowel rest and pain control. 1. Acute pancreatitis, new and acute, present on admission - He will be NPO with the intention of advancing his diet once his pain is adequately controlled. - IV zofran for nausea and/or vomiting 1. Essential hypertension stable and present on admission - Continue home dose of lisinopril. Patient states he takes twice daily and has not taken this evening's dose. Patient is placed into observation as it is anticipated his stay will not exceed 2 midnights 0.45 NS at 100 ml/hour, NPO except chips and meds, CMP 5 am draw VTE prophylaxis: Bilateral SCDs Code Status: Full code Med Reconciliation: Medications reviewed with the patient and confirmed. Quality VTE Deep Vein Thrombosis/Pulmonary Embolism Present on Admission: No
[2019-03-10] MEDS: SODIUM CHLORIDE 0.45% 1,000 ML 100 ML IV ×3 (05:20→23:48)
--- NOTE | 2019-03-10 05:30 | PC.NURSE ---
0445- Pt arrive from ED to room 221; admit for nausea/vomiting. Lipase & WBC elevated at this time; pt NPO except for ice chips. CO 3/10 abdominal pain; on 2L O2 via NC for sats in high 80's. Lung sounds clear, pt A+Ox4, VSS, moving SBA in room. R AC running 1/2 NS as ordered. 0500- Pharmacy confused about scheduled Zofran order, called [facility] to clarify no answer at this time. Will pass onto days.
[2019-03-10 05:49] LABS: Add Manual Diff / Slide Review NO; Basophils Absolute Auto 0 /uL (0-100); Basophils Percent Auto 0.2 % (0-2); Eosinophils Absolute Auto 0 /uL (0-450); Hematocrit 45.1 % (41-53); Hemoglobin 15.6 g/dL (13.5-17.5); Lymphocytes Absolute Auto 700 /uL (1100-4500); Lymphocytes Percent Auto 4.8 % (25-40); Mean Corpuscular HGB Conc 34.6 % (30-36); Mean Corpuscular Volume 86.6 fL (80-100); Monocytes Absolute Auto 400 /uL (0-900); Monocytes Percent Auto 3.1 % (3-14); Neutrophils Absolute Auto 13000 /uL (1500-7000); Neutrophils Percent Auto 91.9 % (50-75); Platelet Count 205 X10^3/uL (150-400); Red Blood Cell Count 5.21 X10^6/uL (4.5-5.9); Red Cell Distribution Width 13.1 % (11.6-14.8); White Blood Cell Count 14.1 X10^3/uL (4.5-11.0)
[2019-03-10 05:55] LABS: Alanine Aminotransferase 29 IU/L (21-72); Albumin 4.1 g/dL (3.5-5.0); Albumin Globulin Ratio 1.5 (1.0-2.8); Alkaline Phosphatase 59 U/L (38-126); Aspartate Aminotransferase 23 IU/L (17-59); BUN Creatinine Ratio 21.3 (6-22); Bilirubin Total 0.6 mg/dL (0.2-1.3); Blood Urea Nitrogen 17 mg/dL (9-20); Carbon Dioxide 24 mmol/L (22-32); Chloride 104 mmol/L (98-107); Estimated Glomerular Filt Rate > 60.0 mL/min (>60); Globulin 2.8 g/dL (1.7-4.1); Glucose 240 mg/dL (70-100); HEMOLYSIS < 15 (0-50); Potassium 4.2 mmol/L (3.4-5.1); Sodium 138 mmol/L (137-145); Total Protein 6.9 g/dL (6.3-8.2)
--- NOTE | 2019-03-10 10:37 | PM.EVENT ---
Date Patient Seen: 03/10/19 Patient seen and evaluated today. He was admitted early this morning with acute pancreatitis. He is currently receiving IV Dilaudid q.2 hours. He reports his pain is about 3/10. We discussed ongoing pain management and will continue 1 mg of Dilaudid q.2 hours as needed. Will continue other orders as written.
[2019-03-10] MEDS: LISINOPRIL 20 MG TABLET PO (11:43)
--- NOTE | 2019-03-10 12:31 | CM.DANOTE ---
DCP: Case received, EMR reviewed and spoke with patient's , Aylin, regarding patient's baseline health. Patient sleeping at this time. Placed name of this casework supervisor on white board in room. DCP template completed with information currently available. Patient is a 58 year old male who admitted early this morning to the care of the hospitalist team. Payer: [facility] Out of [facility]. Patient came to hospital via family vehicle secondary to epigastric pain. Patient had eaten at a [place] restaurant last night, and was concerned that he might have food poisoning. had driven patient to hospital last night, due to increased abdominal pain, and some vomiting. Patient holds diagnosis of Acute Pancreatitis. Called patient's Aylin on her cell phone. Her number is: [phone]. She has been in patient's room most of the morning, and was now down in cafeteria. Patient has been sleeping. 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 Is independent. Asked her if he had a primary doctor, and she stated that he had seen someone in [place] recently, and had labs done, but could not remember the name of the physician. She stated that his other provider, Dr. Bagley, had left the area. She had some questions regarding his diagnosis, how he got it, she stated, he rarely drinks, doesn't smoke, and takes care of himself. She was also concerned since diabetes runs in his family. She has not yet seen hospitalist, but encouraged her to ask these questions. Let her know that this case manage is available if she has any questions regarding discharge. P: DCP to continue to follow and be available for any questions. Patient is likely to go home when he is medically stable. Katiana Dickinson RN/Front Desk Team Member
[2019-03-11] VITALS (13 sets, daily range): BP systolic 126–161; BP diastolic 67–93; PULSE 91–111; RESP 16–20; TEMP 35.9–37.4; O2SAT 88–96
[2019-03-11] MEDS: HYDROMORPHONE 1 MG INJ IV ×5 (03:42→20:38)
[2019-03-11 06:37] LABS: Lipase 4384 U/L (23-300)
[2019-03-11] MEDS: LISINOPRIL 20 MG TABLET PO (07:59)
[2019-03-11 08:42] LABS: Add Manual Diff / Slide Review NO; Basophils Absolute Auto 0 /uL (0-100); Basophils Percent Auto 0.1 % (0-2); Eosinophils Absolute Auto 0 /uL (0-450); Eosinophils Percent Auto 0.1 % (2-4); Hematocrit 46.3 % (41-53); Hemoglobin 15.8 g/dL (13.5-17.5); Lymphocytes Absolute Auto 700 /uL (1100-4500); Lymphocytes Percent Auto 3.4 % (25-40); Mean Corpuscular HGB Conc 34.1 % (30-36); Mean Corpuscular Hemoglobin 29.8 PG (26-34); Mean Corpuscular Volume 87.5 fL (80-100); Monocytes Absolute Auto 1100 /uL (0-900); Monocytes Percent Auto 5.4 % (3-14); Neutrophils Absolute Auto 18100 /uL (1500-7000); Platelet Count 189 X10^3/uL (150-400); Red Blood Cell Count 5.29 X10^6/uL (4.5-5.9); Red Cell Distribution Width 13.3 % (11.6-14.8); White Blood Cell Count 19.9 X10^3/uL (4.5-11.0)
--- NOTE | 2019-03-11 10:09 | PM.PN.1 ---
Subjective Date Patient Seen: 03/11/19 Time Patient Seen: 10:10 Interval history: He is seen today to follow-up his pancreatitis. Imaging so far has shown no gallstone cause and he is not alcoholic. Triglycerides are not elevated. His lipase has dropped from 14,280 down to 4384. The white blood count continues to climb, now up to 19.9. He is afebrile and vital signs are stable with a heart rate of 103. 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 His pain is much better along with the nausea. His blood sugars have been in the 200s but his A1c is only 6.1. Exam Vital Signs (past 8 hours): - 03/11/19 05:12 03/11/19 07:41 03/11/19 07:50 Temperature 97.7 F 98.7 F Pulse Rate 103 H 103 H Respiratory Rate 18 20 Blood Pressure 140/84 151/92 H Pulse Oximetry 94 93 93 03/11/19 08:45 03/11/19 08:49 Temperature Pulse Rate Respiratory Rate Blood Pressure Pulse Oximetry 93 88 L Oxygen Delivery Method Room Air Oxygen Flow Rate 2 Narrative Exam Narrative: He is alert and oriented x3. No apparent distress. Heart is tachycardic, regular rhythm, no murmur. Lungs are clear to auscultation bilaterally. Abdomen is soft, distended, not tender, bowel sounds active. Extremities no ankle edema. Objective Labs Result Diagrams: 03/11/19 08:36 03/10/19 05:18 Labs: Laboratory Results - last 24 hr 03/11/19 03/11/19 05:10 08:36 WBC 19.9 H RBC 5.29 Hgb 15.8 Hct 46.3 MCV 87.5 MCH 29.8 MCHC 34.1 RDW 13.3 Plt Count 189 Neut % (Auto) 91.0 H Lymph % (Auto) 3.4 L [place] % (Auto) 5.4 Eos % (Auto) 0.1 L Baso % (Auto) 0.1 Neut # (Auto) 61918 H Lymph # (Auto) 700 L [place] # (Auto) 1100 H Eos # (Auto) 0 Baso # (Auto) 0 Lipase 4384 H D Assessment & Plan Assessment & Plan narrative: 1. Acute pancreatitis, new and acute, present on admission - He continues NPO with the intention of advancing his diet once his pain is adequately controlled. - IV zofran for nausea and/or vomiting - lipase is dropping but the white count has risen despite clinical improvement. Consider adding Zosyn but so far no confirmatory signs/signals of infection. - no clear cause of his pancreatitis, after ruling out hypertriglyceridemia today. Consider MRCP. Doubt lisinopril as the cause. 2. Essential hypertension stable and present on admission - Continue home dose of lisinopril. 3. Hyperglycemia - A1C 6.1. Consider adding a correctional scale insulin. 0.45 NS at 100 ml/hour, NPO except chips and meds, CMP 5/17 am draw VTE prophylaxis: Bilateral SCDs Code Status: Full code Quality VTE Deep Vein Thrombosis/Pulmonary Embolism Present on Admission: No
[2019-03-11 12:25] LABS: Hemoglobin A1C% w Est Avg Glu 6.1 % (4.0-6.0)
[2019-03-11 13:29] LABS: Cholesterol 130 mg/dL (140-199); HDL Cholesterol 59 mg/dL (40-60); LDL Cholesterol Calculated 62 mg/dL (<100); Triglycerides 46 mg/dL (35-150)
[2019-03-11] MEDS: SODIUM CHLORIDE 0.45% 1,000 ML 100 ML IV (20:38)
[2019-03-12] VITALS (9 sets, daily range): BP systolic 122–148; BP diastolic 72–89; PULSE 92–109; RESP 16–23; TEMP 36.3–37.9; O2SAT 92–94
[2019-03-12] MEDS: HYDROMORPHONE 1 MG INJ IV ×5 (01:10→17:48)
[2019-03-12 06:02] LABS: Add Manual Diff / Slide Review NO; Basophils Absolute Auto 0 /uL (0-100); Basophils Percent Auto 0.2 % (0-2); Eosinophils Absolute Auto 0 /uL (0-450); Eosinophils Percent Auto 0.1 % (2-4); Hematocrit 42.3 % (41-53); Hemoglobin 14.6 g/dL (13.5-17.5); Lymphocytes Absolute Auto 700 /uL (1100-4500); Lymphocytes Percent Auto 4.6 % (25-40); Mean Corpuscular HGB Conc 34.4 % (30-36); Mean Corpuscular Hemoglobin 30.1 PG (26-34); Mean Corpuscular Volume 87.5 fL (80-100); Monocytes Absolute Auto 1100 /uL (0-900); Monocytes Percent Auto 6.8 % (3-14); Neutrophils Absolute Auto 14300 /uL (1500-7000); Neutrophils Percent Auto 88.3 % (50-75); Platelet Count 163 X10^3/uL (150-400); Red Blood Cell Count 4.83 X10^6/uL (4.5-5.9); Red Cell Distribution Width 13.4 % (11.6-14.8); White Blood Cell Count 16.1 X10^3/uL (4.5-11.0)
[2019-03-12 06:07] LABS: Alanine Aminotransferase 25 IU/L (21-72); Albumin 3.6 g/dL (3.5-5.0); Albumin Globulin Ratio 1.2 (1.0-2.8); Alkaline Phosphatase 53 U/L (38-126); Aspartate Aminotransferase 41 IU/L (17-59); BUN Creatinine Ratio 26.7 (6-22); Bilirubin Total 1.1 mg/dL (0.2-1.3); Blood Urea Nitrogen 24 mg/dL (9-20); Calcium 8.2 mg/dL (8.4-10.2); Carbon Dioxide 30 mmol/L (22-32); Chloride 100 mmol/L (98-107); Estimated Glomerular Filt Rate > 60.0 mL/min (>60); Globulin 2.9 g/dL (1.7-4.1); Glucose 192 mg/dL (70-100); HEMOLYSIS < 15 (0-50); Lipase 1567 U/L (23-300); Magnesium 2.2 mg/dL (1.6-2.3); Potassium 4.3 mmol/L (3.4-5.1); Sodium 136 mmol/L (137-145); Total Protein 6.5 g/dL (6.3-8.2)
[2019-03-12] MEDS: SODIUM CHLORIDE 0.45% 1,000 ML 100 ML IV ×2 (06:47→16:52)
[2019-03-12] MEDS: LISINOPRIL 20 MG TABLET PO (08:36)
[2019-03-12] MEDS: KETOROLAC 30 MG/ML VIAL IV (13:06)
--- NOTE | 2019-03-12 14:27 | P.PN_ITS ---
Subjective Date Patient Seen: 03/12/19 Interval history: He is seen today to follow-up his pancreatitis. Imaging so far has shown no gallstone cause and he is not alcoholic. Triglycerides are not elevated. His lipase has dropped from 14,280 down to 4384 yesterday and then 1567 today.. The white blood count has dropped from 19 down to 16 0.1. He is feeling better and wishes to try eating again. He has been able to space his pain pills out by 4 hours instead of the 2 hours he was doing yesterday. His temperature is 100.3? his heart rate is 109. 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 His pain is much better along with the nausea. His blood sugars have been in the high 100s but his A1c is only 6.1. Exam Vital Signs (past 8 hours): - 03/12/19 08:00 03/12/19 08:36 03/12/19 09:47 Temperature 97.7 F Pulse Rate 104 H Respiratory Rate 18 Blood Pressure 136/83 136/83 Pulse Oximetry 94 94 Fraction of Inspired Oxygen 28 Oxygen Delivery Method Nasal Cannula Oxygen Flow Rate 2 Narrative Exam Narrative: He is alert and oriented without apparent distress. Heart is regular rate and rhythm without murmur. Lungs are clear to auscultation bilaterally. Abdomen is soft, obese, bowel sounds positive, nontender, no organomegaly. There is no ankle edema Objective Labs Result Diagrams: 03/12/19 05:38 03/12/19 05:38 Labs: Laboratory Results - last 24 hr 03/12/19 03/12/19 03/12/19 05:38 05:38 05:38 WBC 16.1 H RBC 4.83 Hgb 14.6 Hct 42.3 MCV 87.5 MCH 30.1 MCHC 34.4 RDW 13.4 Plt Count 163 Neut % (Auto) 88.3 H Lymph % (Auto) 4.6 L [place] % (Auto) 6.8 Eos % (Auto) 0.1 L Baso % (Auto) 0.2 Neut # (Auto) 32672 H Lymph # (Auto) 700 L [place] # (Auto) 1100 H Eos # (Auto) 0 Baso # (Auto) 0 Sodium 136 L Potassium 4.3 Chloride 100 Carbon Dioxide 30 BUN 24 H Creatinine 0.90 Estimated GFR > 60.0 BUN/Creatinine Ratio 26.7 H Glucose 192 H Calcium 8.2 L Magnesium 2.2 Total Bilirubin 1.1 AST 41 ALT 25 Alkaline Phosphatase 53 Total Protein 6.5 Albumin 3.6 Globulin 2.9 Albumin/Globulin Ratio 1.2 Lipase 1567 H D Assessment & Plan Assessment & Plan narrative: 1. Acute pancreatitis, new and acute, present on admission -with clinical improvements his diet will be advanced today to full liquids. - IV zofran for nausea and/or vomiting - lipase and white counts have dropped. Consider adding Zosyn but so far no confirmatory signs/signals of infection. - no clear cause of his pancreatitis, after ruling out hypertriglyceridemia yesterday. Consider MRCP. Doubt lisinopril as the cause. 2. Essential hypertension stable and present on admission - Continue home dose of lisinopril. 3. Hyperglycemia - A1C 6.1. Consider adding a correctional scale insulin. Stopping IV fluids VTE prophylaxis: Bilateral SCDs Code Status: Full code Quality VTE Deep Vein Thrombosis/Pulmonary Embolism Present on Admission: No
--- NOTE | 2019-03-12 14:38 | PC.NURSE ---
Pt remains on bedrest this shift, is more confortable resting in bed. Pt cont on O2 2LNC, sats 93-94%. Pt states probably needs c-pap. Heavy snoring. Pt voiding, C/o of abd discomfort off & on. Pt states the IV dilaudid is effective pain med. Pt started on a full liq diet, inst Pt to start slow w/po intake. Cont w/IVF.
[2019-03-13] VITALS (11 sets, daily range): BP systolic 133–152; BP diastolic 66–86; PULSE 92–116; RESP 18–20; TEMP 36.3–37.2; O2SAT 91–96
--- NOTE | 2019-03-13 | DI.CT.S_ITS ---
PROCEDURE: CT ANGIO CHEST PE PROTOCOL INDICATIONS: Hypoxia TECHNIQUE: After the administration of intravenous contrast, 2 mm thick sections acquired from the pulmonary apices to the posterior costophrenic angles. 3-dimensional maximum intensity projection (MIP) coronal and sagittal reformats were then acquired through the thorax. For radiation dose reduction, the following was used: automated exposure control, adjustment of mA and/or kV according to patient size. COMPARISON: [facility], CT, CT ABDOMEN PELVIS W CON, 03/10/2019, 2:50. FINDINGS: Image quality: Diagnostic. Pulmonary arteries: Pulmonary arteries are normal in size, and demonstrate no intraluminal filling defects to suggest central pulmonary embolism. Lungs and pleura: There is a small left-sided pleural effusion. Mild consolidation within the bilateral posterior costophrenic angles of the lung bases is noted. Bronchial wall thickening is present bilaterally. No large area of consolidation is evident. There is no pneumothorax. No lung mass or definite pulmonary nodule is evident. Mediastinum: Heart size is borderline enlarged, without pericardial effusion. No mediastinal or hilar adenopathy. There is aortic atherosclerosis. There also appears to be mild coronary artery atherosclerosis. Thoracic aorta is normal in caliber and enhancement. Esophagus is normal in caliber, without hiatal hernia. Bones and chest wall: No suspicious bony lesions. Ribs and thoracic spine appear intact throughout. Mild degenerative changes of the spine are present. Thyroid gland is not enlarged. No axillary or supraclavicular adenopathy. Abdomen: Nonspecific edema surrounding the fundal portion of the stomach is not adequately characterized. Otherwise, the included portions of the upper abdomen are grossly unremarkable. The liver may be hypodense, suggesting hepatic steatosis. IMPRESSION: 1. No evidence of pulmonary embolism. 2. Small left-sided pleural effusion and associated atelectasis. There is also mild right basilar atelectasis. Please correlate clinically to exclude superimposed pneumonia. 3. Bronchial wall thickening may be exaggerated by expiratory technique. Clinical correlation to exclude bronchitis is recommended. 4. Nonspecific edema within the upper abdomen may be related to pancreatitis given the appearance on the prior abdominal CT. 5. Possible hepatic steatosis. Note: The preliminary [facility] report and the final report are concordant. Dictated by: Tan Rocha M.D. on 03/13/2019 at 7:41 Approved by: Tan Rocha M.D. on 03/13/2019 at 7:45
[2019-03-13] MEDS: SODIUM CHLORIDE 0.45% 1,000 ML 100 ML IV (00:08)
--- NOTE | 2019-03-13 00:43 | PC.NURSE ---
Addendum entered by Gi Mora R.N. 03/13/19 07:00: After labs resulted, Dr Luis ordered a stat chest CT with contrast, this RN and TARIFF COUNSEL accompanied pt down to CT for imaging. 20g IV site patent for contrast, no new IV site inserted. Coban to IV site at this time to protect from pt's movements and to prevent from being dislodged. Addendum entered by Gi Mora R.N. 03/13/19 05:39: Dr Luis at bedside and reviewing imagining and labs. Addendum entered by Gi Mora R.N. 03/13/19 04:53: Pt exhibiting signs of possible stroke, inability to see left eye visual bass, initial muscle weakness in left arm, initial inability to direct left heel to adorno movement, CBG of 194, called Code Stroke at 0445, [facility] exam performed, STAT CT ordered, updated labs that had been drawn previously to include PT/PTT, Dr Luis called and made aware of findings. This RN and TARIFF COUNSEL accompanied pt down to CT for head imaging. Will continue to monitor, pt returned to his room. He reports that he doesn't feel right and acknowledges confusion. Addendum entered by Gi Mora R.N. 03/13/19 04:23: Pt continued to exhibit confusion episodes marked by exiting the bed without calling appropriately, removing oxygen tubing and attempting to remove continuous pulse ox and IV line. Pt also has increased oxygen demand as 3L O2 by NC has a pulse ox reading of 87-91. RT came to bedside and was able to achieve 95% on 6L and listed to pt's lungs and heard faint crackles in the bases. Call training personnel supervisor Dr Luis to report findings of confusion and oxygen demand most likely not related to narcotic use as pt's last dose of 1mg IV Dilaudid was at 1748 per MAR, and he ordered a STAT chest Xray to be read tonight, with a BNP and CBC. Radiology and Lab have both been in to see the pt at this time. Pt reports that he will have a sudden urge to get up but with no intention of going anywhere or why he felt the need to get up. Pt is unaware when he removes his nasal cannula. Pt feels sweaty to the touch but has no complaints other than back pain which the pt was given 30mg Toradol IV per DEC. Original Note: Shift note: Received pt from evening shift. During bedside shift report, determined that in a confused state the pt had removed his IV catheter and continuous pulse oximeter when he attempted to exit the bed. Pt was unaware that he had done any of those things. Pt AxOx4 at time of bedside shift report. Assessment notable for pt c/o shortness of breath at rest and pulse ox of 90% on 2L O2 by NC, titrated up to 3L for a saturation of 93%. Pt's abdomen is distended with hypoactive tympanic bowel tones, but denies pain on palpation or nausea/vomiting. Pt denies pain of any kind at time of assessment. Was able to reinitiate IV access in right forearm, pt tolerated this well. After assessment pt c/o back pain and repositioned himself on to his right side, with relief, but then that position was uncomfortable, pt now sitting upright with the bed positioning him. During vital signs, pt's temperature via tympanic probe was 100.5, repeated it orally (pt had not been drinking any fluids prior) and was 98.7. Pt is a low fall risk but is on a bed alarm d/t recent bout of confusion. Will continue to monitor for any more confusion.
[2019-03-13] MEDS: KETOROLAC 30 MG/ML VIAL IV ×2 (02:59→10:43)
--- NOTE | 2019-03-13 04:05 | DI.RAD.S_ITS ---
PROCEDURE: XR CHEST 1V INDICATIONS: Increased oxygen demand TECHNIQUE: One view of the chest was acquired. COMPARISON: [facility], , CHEST 1 VIEW, 06/11/2008, 20:45. FINDINGS: Surgical changes and devices: None. Lungs and pleura: Increased attenuation is identified at the left lung base. There are low lung volumes. No large effusion or pneumothorax is evident. Mediastinum: Mediastinal contours appear normal. Heart size is normal. Bones and chest wall: No suspicious bony lesions. Overlying soft tissues appear unremarkable. IMPRESSION: Left basilar atelectasis versus pneumonia. Please correlate clinically. Dictated by: Tan Rocha M.D. on 03/13/2019 at 7:33 Approved by: Tan Rocha M.D. on 03/13/2019 at 7:34
[2019-03-13 04:32] LABS: Add Manual Diff / Slide Review NO; Basophils Absolute Auto 0 /uL (0-100); Basophils Percent Auto 0.3 % (0-2); Eosinophils Absolute Auto 0 /uL (0-450); Eosinophils Percent Auto 0.2 % (2-4); Hematocrit 38.6 % (41-53); Hemoglobin 13.1 g/dL (13.5-17.5); Lymphocytes Absolute Auto 600 /uL (1100-4500); Mean Corpuscular HGB Conc 33.9 % (30-36); Mean Corpuscular Hemoglobin 29.5 PG (26-34); Mean Corpuscular Volume 87.2 fL (80-100); Monocytes Absolute Auto 900 /uL (0-900); Monocytes Percent Auto 7.7 % (3-14); Neutrophils Absolute Auto 10200 /uL (1500-7000); Neutrophils Percent Auto 86.8 % (50-75); Platelet Count 182 X10^3/uL (150-400); Red Blood Cell Count 4.43 X10^6/uL (4.5-5.9); Red Cell Distribution Width 13.2 % (11.6-14.8); White Blood Cell Count 11.8 X10^3/uL (4.5-11.0)
[2019-03-13 04:41] LABS: Lipase 548 U/L (23-300)
--- NOTE | 2019-03-13 04:51 | DI.CT.S_ITS ---
PROCEDURE: CT HEAD/BRAIN WO CON INDICATIONS: Possible Stroke TECHNIQUE: Noncontrast 4.5 mm thick angled axial sections acquired from the foramen magnum to the vertex, with coronal and sagittal reformats. For radiation dose reduction, the following was used: automated exposure control, adjustment of mA and/or kV according to patient size. COMPARISON: None. FINDINGS: Image quality: Diagnostic. CSF spaces: Basal cisterns are patent. No extra-axial fluid collections. Ventricles are normal in size and shape. Brain: No midline shift. No intracranial masses or hemorrhage. Moody-white matter interface is normal. Skull and face: Calvarium and visualized facial bones are intact, without suspicious lesions. Sinuses: Visualized sinuses and mastoids are clear. IMPRESSION: Negative head CT. No acute intracranial hemorrhage. Note: The preliminary [facility] report and the final report are concordant. Dictated by: Tan Rocha M.D. on 03/13/2019 at 7:40 Approved by: Tan Rocha M.D. on 03/13/2019 at 7:41
[2019-03-13 04:57] LABS: B Type Natriuretic Peptide < 100 (<100)
[2019-03-13 05:04] LABS: INR 1.3 (0.9-1.3); Prothrombin Time 14.6 SECONDS (10.1-12.7)
[2019-03-13 05:07] LABS: PTT Partial Thromboplastin Tim 29 SECONDS (26.4-36.2)
[2019-03-13 05:35] LABS: Alanine Aminotransferase 23 IU/L (21-72); Albumin 3.5 g/dL (3.5-5.0); Albumin Globulin Ratio 1.2 (1.0-2.8); Alkaline Phosphatase 57 U/L (38-126); Aspartate Aminotransferase 33 IU/L (17-59); BUN Creatinine Ratio 31.3 (6-22); Bilirubin Total 1.1 mg/dL (0.2-1.3); Blood Urea Nitrogen 25 mg/dL (9-20); Calcium 8.8 mg/dL (8.4-10.2); Carbon Dioxide 31 mmol/L (22-32); Chloride 98 mmol/L (98-107); Estimated Glomerular Filt Rate > 60.0 mL/min (>60); Glucose 217 mg/dL (70-100); HEMOLYSIS < 15 (0-50); Potassium 4.2 mmol/L (3.4-5.1); Sodium 135 mmol/L (137-145); Total Protein 6.5 g/dL (6.3-8.2)
--- NOTE | 2019-03-13 05:44 | PM.EVENT ---
Date Patient Seen: 03/13/19 Time Patient Seen: 05:49 On-call note I was called and returned to the hospital at 4-5 a.m. today due to a ?code stroke? 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 Initially he became somewhat encephalopathic, prompting a check of his oxygen which was below 90% and so nasal cannula oxygen was applied with good results. A chest x-ray was done and was officially read as showing left greater than right perihilar linear opacities may represent subsegmental atelectasis, cannot exclude pneumonia. On my review of the films I suspect he has a left basilar infiltrate but it is not completely clear. He had also been complaining of low back pain. About an hour or so later he showed loss of left arm function and lack of awareness of peripheral vision. This prompted a code stroke which was attended by the emergency department physician and culminated with a head CT, which is normal. I have also reviewed those films. When I arrived at approximately 5:20 a.m. this morning he remains somewhat odd, mildly confused. When I speak to him, asking how he is doing, he looks at me blankly and then when staff remind him that I am asking the question he says ?I thought you might be talking to someone behind me.? 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 He has no left or right sided lateralizing weakness, so that has already resolved quite quickly. Babinski's are downgoing bilaterally. Cranial nerve function is tested and intact bilaterally. Heart is regular rate and rhythm without murmur. Lungs are clear to auscultation bilaterally. Abdomen is soft, nontender, bowel sounds active. His lipase is down into the 500s, the white count is down to 11 and the BNP is less than 100. The BMP is normal. His sugar is above 200. A D-dimer and an ABG are pending Earlier in the evening he had received Toradol but no IV opiates for quite some time. A/P 1 -probable left-sided pneumonia, rule out PE -begin antibiotics for possible health care acquired pneumonia -continue supplemental oxygen -pending ABG and D-dimer 2 -confusion/possible neurological event -head CT is negative for acute bleed -no reliable/consistent indicators for tPA use -close nursing and physician attention/evaluations for the next several hours. Neftali Luis MD
[2019-03-13 06:11] LABS: pH ABG 7.44 (7.35-7.45)
[2019-03-13 06:12] LABS: Fractionated Inspired Oxygen 21; HCO3 ABG 29 mmol/L (22-26); Oxygen Saturation ABG 92 % (95-100); PO2 ABG 62 mmHg (80-100); TCO2 ABG 31 mmol/L (21-31)
[2019-03-13 06:14] LABS: D Dimer 3059 ng/mL (<230)
[2019-03-13] MEDS: levoFLOXacin 500 MG/100 ML PIGGYBACK 100 MG IV (07:46)
[2019-03-13] MEDS: PIPERACILLIN-TAZO 3.375 GM/50 ML FROZ.PIGGY IV ×2 (09:31→12:57)
[2019-03-13] MEDS: LISINOPRIL 20 MG TABLET PO (09:57)
[2019-03-13] MEDS: ACETAMINOPHEN 325 MG TABLET 650 MG PO (09:57)
[2019-03-13] MEDS: VANCOMYCIN 2,000 MG in SODIUM CHLORIDE 0.9% 500 ML 250 ML IV (10:00)
[2019-03-13] MEDS: DOCUSATE 100 MG CAPSULE PO (10:40)
[2019-03-13] MEDS: POLYETHYLENE GLYCOL 3350 17 GM POWD.PACK PO (10:40)
[2019-03-13 10:50] LABS: Procalcitonin 0.09 ng/mL (<0.5)
--- NOTE | 2019-03-13 11:36 | PC.NURSE ---
Day shift: Pt up OOB and sitting/laying in chair. Bed became too uncomfortable. Gave PO Tylenol and IV Ketorolac. Pt has been sleeping on and off. Reports that he is more comfortable now. Also gave him meds to help with having a BM. His spouse and friend are at bedside for support. Pt remains HFR as he is unsteady on his feet.
--- NOTE | 2019-03-13 14:03 | PT.IIE ---
Current Diagnoses Acute pancreatitis without necrosis or infection, unspecified (03/10/19) Hyperglycemia, unspecified (03/10/19) Surgical History (Last Reviewed 03/10/19 @ 04:38 by Mckay Uriostegui MD) History of umbilical hernia repair (Acute) Medical History (Last Updated 03/10/19 @ 04:38 by Mckay Uriostegui MD) Essential hypertension (Acute) Hypertension (Acute) Physical Therapy Inpatient Evaluation/Re-Eval M1 PT/OT-IP Prior Functional Status Start: 03/13/19 15:27 Freq: NEEDED Status: Active Protocol: Document 03/13/19 14:03 [facility] (Rec: 03/13/19 15:43 [facility] [id number]) Medical Review Prior Functional Status Medical History Reviewed Yes Mobility and Gait indep community ambulator without device Activities of Daily Living and IADL's indep I/ADLs Social History Household Members spouse Living Arrangements House Number of Floors (Floors) One Floor Number of Stairs To Enter/Railing? 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 PMH: HTN, otherwise unremarkable. Pt had an episode on 03/13/19 between 4-5 AM where a code stroke was called, reportedly pt lost function in L arm, and had visual disturbance. Head CT was negative. Chest radiograph showed possible L pneumonia per Dr. Boss note. During this episode pt found to have low O2 readings, as well as encephalopathy. Pt has since regained LUE strength, denies any visual disturbances, feeling better but still reports confusion. M2 PT-IP Current Condition Start: 03/13/19 15:27 Freq: NEEDED Status: Active Protocol: Document 03/13/19 14:03 [facility] (Rec: 03/13/19 15:43 [facility] [id number]) Physical Therapy Current Condition Current Condition Evaluation Date 03/13/19 Treatment Diagnosis nausea, vomiting, impaired gait and activity tolerance M3 PT-IP Subjective Start: 03/13/19 15:27 Freq: NEEDED Status: Active Protocol: Document 03/13/19 14:03 [facility] (Rec: 03/13/19 15:43 [facility] [id number]) Subjective Physical Therapy Visit Type Type Initial Evaluation Visit Start Time 14:03 Visit Stop Time 14:28 Total Visit Minutes 25 Number of FACTORER Visits 0 Physical Therapy Visit Comments Patient Comments pt states he is tired. Agreeable for PT evaluation. Patient Goals to sleep Therapy Pain Assessment Pain Present Pain Present Denied Pain M4 PT-IP Mobility and Gait Start: 03/13/19 15:27 Freq: NEEDED Status: Active Protocol: Document 03/13/19 14:03 [facility] (Rec: 03/13/19 15:43 [facility] [id number]) PT-Bed Mobility Assessment Sit to Supine Sit to Supine Standby Assistance PT-Transfer Assessment Sit to and From Stand Sit to and from Stand Contact Guard Assistance Equipment Transfer Assistive Device Gait Belt Straight Cane Transfers Transfer Destination Bed Transfer Technique Stand Step Pivot Transfer Ability Level of Assist Minimal Assistance Comments Mobility Comments requires mod VC for getting back into bed; max VC and Min A to avoid objects Gait Assessment Gait Gait Assistance Required: Minimum Assistance Distance (Feet) 75 Assistive Devices Assistive Device Gait Belt Straight Cane Gait Deviations General Gait Pattern Ataxic Decreased Stride Length Decreased Feet Clearance Wide Based Gait Factors Limiting Gait Function Factors Limiting Gait Function Decreased Activity Tolerance Difficulty Following Directions Incoordination Poor Balance Poor Safety Awareness Comments Gait Comments Pt was told to walk toward the door into the hallway. He first walked to the window, and asked where is the door? He then proceeded to walk and opened up the linen closet and attempted to walk through, was confused, then when cued to look around the room he found the door but then attempted to open the door from the R vs the L side where there is handle. Pt inconsistent with gait pattern using a cane, required cuing to use properly (increased lateral sway without cane). He then required cuing to prevent him from running into a computer workstation on wheels. When asked to look to the left, he looked upward and then to the right PT-Balance Assessment Sitting Balance and Reactions Static Sitting Balance Ability Good Dynamic Sitting Balance Ability Good Standing Balance and Reactions Static Standing Balance Ability Fair Dynamic Standing Balance Ability Fair Device Used none Balance Tests Single Limb Standing unable Tandem Standing <2 sec B M5 PT-IP Objective Assessments Start: 03/13/19 15:27 Freq: NEEDED Status: Active Protocol: Document 03/13/19 14:03 [facility] (Rec: 03/13/19 15:43 [facility] [id number]) Orientation Orientation/Cognition Level of Alertness Lethargic Safety Awareness Decreased Safety Awareness Comments slow, but appropriate answers to questions Gross Range of Motion Lower Extremity ROM Assessment Within Functional Limits Strength Lower Extremity Strength Hip flexion 4/5 B Knee 5/5 B flexion and extension Ankle 5/5 B DF Coordination Assessment Gross Coordination Gross Coordination WNL Assessment Finger to Nose Test Normal Performance Pronation/Supination Test Normal Performance Foot Tapping Test Normal Performance Heel on Adorno Test Normal Performance Sensation Assessment Sensation Gross Sensation WNL Muscle Tone Muscle Tone WNL Yes M6 PT-IP Treatment Start: 03/13/19 15:27 Freq: NEEDED Status: Active Protocol: Document 03/13/19 14:03 [facility] (Rec: 03/13/19 15:43 [facility] [id number]) Physical Therapy Treatment Education Education Provided Safety Other Treatments Other Treatment Performed BP 144/88 after gait M7 PT-IP Assessment and Plan Start: 03/13/19 15:27 Freq: NEEDED Status: Active Protocol: Document 03/13/19 14:03 [facility] (Rec: 03/13/19 15:43 [facility] [id number]) PT Summary Assessment and Plan Potential Rehabilitation Potential Good Status of Condition at Evaluation Evolving Summary Impairments Balance Cognition Transfers Gait Activity Tolerance Assessment Summary Pt presents with 4/5 or greater strength with MMT, no significant difference between each side. His heel to opposite adorno testing was limited in sitting due to hip stiffness, but able to perform standing with UE support. Pt required max cuing to avoid obstacles in and outside of the room with ambulation, and attempted to open the linen close to walk out of the room when attempting to find the door. Pt with ataxic gait, and slow responses to questions and slow balance reactions with gait, increasing instability requiring Min A. Pt is well below his functional baseline, and very poor dynamic stability. Recommend continuation of skilled physical therapy during this episode of care for gait and balance training. He is not safe for d/c today. Goals Bed Mobility Goal Independent Transfer Goal Independent Gait Goal Independent Gait Distance 300 Days to Meet Goals 5 Frequency of Treatment Frequency Of Treatment Twice a Day Treatment Plan Physical Therapy Treatment Plan Transfer Training Gait Training Therapeutic Exercise Balance Retraining Discharge Planning Neuromuscular Re-ed Other Recommendations and Next Treatment gait training- Min A on Focus evaluation, balance training, continue to monitor for safety and visual awareness Recommendations To Nursing Amount of Assist Needed 1 Person Assist Discharge Recommendations PT Discharge Recommendations Home with Assistance Other Discharge Recommendations requires ongoing assessment Equipment Needed for Home Before SPC if does not improve Discharge
[2019-03-13] MEDS: ALBUTEROL 2.5 MG/3 ML NEB (ADULT) INH (14:07)
[2019-03-13] MEDS: ONDANSETRON 4 MG/2 ML INJ IV ×3 (15:45→20:23)
--- NOTE | 2019-03-13 15:47 | CM.DPC ---
DCP: continued: case discussed in Team Rounds and Dr. Guzman noted that she had expected that he would d/c today but that an overnight medical event had changed this. She stated she would be following him for the next few days and would know more later re specifics of his case. DCP team will continue to follow.
[2019-03-13 17:12] LABS: Creatine Kinase 65 U/L (55-170)
[2019-03-13] MEDS: HYDROCODONE/ACET 5/325 TABLET 1 TAB PO (17:14)
[2019-03-13 17:25] LABS: Troponin I < 0.012 ng/mL (0.01-0.034)
[2019-03-13] MEDS: MELATONIN 3 MG TABLET 6 MG PO (17:58)
[2019-03-13] MEDS: LORazepam 2 MG/ML INJ 1 MG IV ×2 (19:10→23:05)
--- NOTE | 2019-03-13 19:24 | P.PN_ITS ---
Subjective Date Patient Seen: 03/13/19 Interval history: Sanchez Cabello is a 58-year-old male with a past medical history significant for hypertension who presented for abrupt onset abdominal pain and was found to have acute pancreatitis. Patient is resting in bed comfortably. He is appears to be alert oriented x3. Patient's spouse and family/friends report he continues to be confused. Patient was up and working with physical therapy today also and reported that he had some cognitive impairment/inability to perform daily tasks i.e. opening a door. Ordered MR stroke protocol which is pending. Discussed alcohol use with patient and his spouse who report that he drinks alcohol occasionally and most recently had 2 beers the day prior to being admitted. Later on in the afternoon/evening Leonel patient's spouse reported to nursing staff that he used to have significant alcohol use/problem. Exam Vital Signs (past 8 hours): - 03/13/19 14:07 03/13/19 16:35 Temperature 97.3 F L Pulse Rate 92 H 116 H Respiratory Rate 20 18 Blood Pressure 146/84 H Pulse Oximetry 92 92 Fraction of Inspired Oxygen 32 Oxygen Delivery Method Room Air Oxygen Flow Rate 2 Narrative Exam Narrative: General: Older male sitting in bed and in no acute distress, tremulous, mildly diaphoretic, appears anxious, mild cognitive and inhibition impairment. HEENT: Normocephalic, atraumatic. External ears without defect. Pupils equal, round, and reactive to light. Anicteric sclerae, moist conjunctivae, and no lid lag. Neck: Supple with full range of motion. No jugular venous distension. No lymphadenopathy or thyromegaly. Cardiovascular: Regular rhythm, tachycardic, without murmurs, rubs, or gallops appreciated. Pulmonary: Clear to auscultation bilaterally without crackles, wheezes, or rhonchi. Normal respiratory effort with no use of accessory muscles. Abdomen: Soft, obese, bowel sounds present, nontender, nondistended. No hepatosplenomegaly or masses appreciated. Extremities: No clubbing, cyanosis, or edema. Skin: Normal temperature, turgor, and texture; no rash, ulcers, or subcutaneous nodules appreciated. Neurological: Cranial nerves grossly intact. Normal muscle strength, tone, and bulk. Reflexes, coordination, and sensory function within normal limits. Ataxia reported per PT but not visualized. Psychiatric: Alert and oriented to person, place, and time. Mild cognitive and inhibition impairment. Objective Labs Result Diagrams: 03/13/19 04:20 03/13/19 04:20 Labs: Laboratory Results - last 24 hr 03/13/19 03/13/19 03/13/19 04:20 04:20 04:20 WBC 11.8 H RBC 4.43 L Hgb 13.1 L Hct 38.6 L MCV 87.2 MCH 29.5 MCHC 33.9 RDW 13.2 Plt Count 182 Neut % (Auto) 86.8 H Lymph % (Auto) 5.0 L Villalba % (Auto) 7.7 Eos % (Auto) 0.2 L Baso % (Auto) 0.3 Neut # (Auto) 03823 H Lymph # (Auto) 600 L Villalba # (Auto) 900 Eos # (Auto) 0 Baso # (Auto) 0 PT INR APTT D-Dimer ABG pH ABG pCO2 ABG pO2 ABG HCO3 ABG Total CO2 ABG O2 Saturation ABG Base Excess FiO2 Sodium Potassium Chloride Carbon Dioxide BUN Creatinine Estimated GFR BUN/Creatinine Ratio Glucose Calcium Total Bilirubin AST ALT Alkaline Phosphatase Total Creatine Kinase CK-MB (CK-2) CK-MB (CK-2) Rel Index B-Natriuretic Peptide < 100 Total Protein Albumin Globulin Albumin/Globulin Ratio Lipase 548 H D Procalcitonin 03/13/19 03/13/19 03/13/19 04:20 04:20 04:20 WBC RBC Hgb Hct MCV MCH MCHC RDW Plt Count Neut % (Auto) Lymph % (Auto) Villalba % (Auto) Eos % (Auto) Baso % (Auto) Neut # (Auto) Lymph # (Auto) Villalba # (Auto) Eos # (Auto) Baso # (Auto) PT 14.6 H INR 1.3 APTT 29 D-Dimer 3059 H ABG pH ABG pCO2 ABG pO2 ABG HCO3 ABG Total CO2 ABG O2 Saturation ABG Base Excess FiO2 Sodium 135 L Potassium 4.2 Chloride 98 Carbon Dioxide 31 BUN 25 H Creatinine 0.80 Estimated GFR > 60.0 BUN/Creatinine Ratio 31.3 H Glucose 217 H Calcium 8.8 Total Bilirubin 1.1 AST 33 ALT 23 Alkaline Phosphatase 57 Total Creatine Kinase CK-MB (CK-2) CK-MB (CK-2) Rel Index B-Natriuretic Peptide Total Protein 6.5 Albumin 3.5 Globulin 3.0 Albumin/Globulin Ratio 1.2 Lipase Procalcitonin 03/13/19 03/13/19 03/13/19 05:50 05:56 16:55 WBC RBC Hgb Hct MCV MCH MCHC RDW Plt Count Neut % (Auto) Lymph % (Auto) Villalba % (Auto) Eos % (Auto) Baso % (Auto) Neut # (Auto) Lymph # (Auto) Villalba # (Auto) Eos # (Auto) Baso # (Auto) PT INR APTT D-Dimer ABG pH 7.44 ABG pCO2 43.0 ABG pO2 62 L ABG HCO3 29 H ABG Total CO2 31 ABG O2 Saturation 92 L ABG Base Excess 5.0 H FiO2 21 Sodium Potassium Chloride Carbon Dioxide BUN Creatinine Estimated GFR BUN/Creatinine Ratio Glucose Calcium Total Bilirubin AST ALT Alkaline Phosphatase Total Creatine Kinase 65 CK-MB (CK-2) TNP CK-MB (CK-2) Rel Index TNP B-Natriuretic Peptide Total Protein Albumin Globulin Albumin/Globulin Ratio Lipase Procalcitonin 0.09 Assessment & Plan Assessment & Plan narrative: Sacnhez Cabello is a 58-year-old male with a past medical history significant for hypertension who presented for abrupt onset abdominal pain and was found to have acute pancreatitis. 1. Acute pancreatitis, present on admission. Resolving. -Etiology possibly due to alcohol and is somewhat unclear with vague report of use? No cholelithiasis, biliary or common bile duct dilatation. Hypertriglyceridemia ruled out. Medication side effect unlikely. -Continue to advance diet as tolerated from full liquids to soft. -Continue IV zofran for nausea and/or vomiting. -Initial Lipase 14,280. Lipase continues to trend down and has almost normalized at 548. 2. Acute confusion, not present on admission. Active. -Code stroke was called last night due to reported left arm weakness and possible hypoxemic episode. Patient had no focal neurological deficits an NIH was 0. -CT brain did not demonstrate any acute intracranial abnormality. -Ordered MR stroke protocol, pending. -CTA performed which was negative for PE and demonstrated bibasilar atelectasis. Antibiotics were discontinued as patient has no other infectious signs or symptoms, WBC trending down without antibiotics, procalcitonin negative at 0.09 and ABG did not demonstrate hypoxemia and off O2. -EKG performed which demonstrated sinus tachycardia without any acute ischemic changes such as ST elevation or depression. Troponin within normal limits. -Concern for alcohol withdrawal as patient is diaphoretic, tachycardic, mildly anxious, and confused with vague report of alcohol use and now with acute pancreatitis. Therefore, ordered [facility] protocol. 3. Essential hypertension, chronic, present on admission. Stable. -Continue home dose of lisinopril. 4. Prediabetes, chronic, present on admission. Stable. -Hemoglobin A1C 6.1%. -Continue ACHS blood glucose checks and low-dose correctional scale insulin. -Once diet has been advanced and is tolerated will start heart hea lthy/carbohydrate consistent diet. Disposition: Patient likely to discharge in several days depending on continued workup. Quality VTE Deep Vein Thrombosis/Pulmonary Embolism Present on Admission: No
[2019-03-13] MEDS: MORPHINE 2 MG/ML INJ IV (20:23)
[2019-03-13] MEDS: SODIUM CHLORIDE 0.9% 1,000 ML 75 ML IV (20:23)
[2019-03-14] VITALS (11 sets, daily range): BP systolic 118–156; BP diastolic 70–93; PULSE 90–107; RESP 16–20; TEMP 36.4–37.3; O2SAT 90–98; BMI 40.4
--- NOTE | 2019-03-14 | DI.RAD.S_ITS ---
PROCEDURE: XR ABDOMEN 1V INDICATIONS: abdominal distention, pancreatitis TECHNIQUE: One view of the abdomen acquired. COMPARISON: [facility], CT, CT ABDOMEN PELVIS W CON, 03/10/2019, 2:50. FINDINGS: Surgical changes and devices: None. Bowel: Diffuse bowel loops with gaseous prominence, although mild if any change since manager field investigations image from prior CT dated 03/10/19. No definite transition point is seen. Gas is projecting in the rectal vault. Soft tissues: No suspicious abdominal calcifications. Visualized solid organ contours appear normal in size. Bones: Bilateral moderate degeneration and multilevel spondylosis. IMPRESSION: Diffuse gaseous prominence of bowel loops. No specific transition point identified although cannot exclude early/developing obstruction (versus ileus). No change to slight progression since 03/10/19. If the patient's symptoms do not improve, continued surveillance with abdominal series radiographs could be performed. Dictated by: Haja Amin M.D. on 03/14/2019 at 8:16 Approved by: Haja Amin M.D. on 03/14/2019 at 8:20
[2019-03-14 05:54] LABS: Add Manual Diff / Slide Review NO; Basophils Absolute Auto 0 /uL (0-100); Basophils Percent Auto 0.2 % (0-2); Eosinophils Absolute Auto 0 /uL (0-450); Eosinophils Percent Auto 0.3 % (2-4); Hematocrit 42.2 % (41-53); Hemoglobin 14.4 g/dL (13.5-17.5); Lymphocytes Absolute Auto 800 /uL (1100-4500); Lymphocytes Percent Auto 5.8 % (25-40); Mean Corpuscular HGB Conc 34.2 % (30-36); Mean Corpuscular Hemoglobin 29.8 PG (26-34); Mean Corpuscular Volume 87.1 fL (80-100); Monocytes Absolute Auto 1100 /uL (0-900); Monocytes Percent Auto 8.4 % (3-14); Neutrophils Absolute Auto 11300 /uL (1500-7000); Neutrophils Percent Auto 85.3 % (50-75); Platelet Count 246 X10^3/uL (150-400); Red Blood Cell Count 4.85 X10^6/uL (4.5-5.9); Red Cell Distribution Width 13.4 % (11.6-14.8); White Blood Cell Count 13.3 X10^3/uL (4.5-11.0)
[2019-03-14 06:04] LABS: Alanine Aminotransferase 19 IU/L (21-72); Albumin 3.6 g/dL (3.5-5.0); Albumin Globulin Ratio 1.2 (1.0-2.8); Alkaline Phosphatase 64 U/L (38-126); Aspartate Aminotransferase 22 IU/L (17-59); BUN Creatinine Ratio 30.8 (6-22); Bilirubin Total 0.8 mg/dL (0.2-1.3); Blood Urea Nitrogen 37 mg/dL (9-20); Calcium 8.7 mg/dL (8.4-10.2); Carbon Dioxide 33 mmol/L (22-32); Chloride 95 mmol/L (98-107); Estimated Glomerular Filt Rate > 60.0 mL/min (>60); Glucose 246 mg/dL (70-100); HEMOLYSIS < 15 (0-50); Magnesium 2.7 mg/dL (1.6-2.3); Sodium 136 mmol/L (137-145); Total Protein 6.6 g/dL (6.3-8.2)
[2019-03-14] MEDS: PIPERACILLIN-TAZO 3.375 GM/50 ML FROZ.PIGGY IV ×3 (07:50→22:55)
[2019-03-14 07:55] LABS: Lipase 381 U/L (23-300)
[2019-03-14 08:13] LABS: Procalcitonin 1.73 ng/mL (<0.5)
[2019-03-14] MEDS: ASPIRIN EC 81 MG TABLET PO (08:56)
[2019-03-14] MEDS: THIAMINE 100 MG TABLET PO (08:56)
[2019-03-14] MEDS: ENOXAPARIN 40 MG/0.4 ML SYRINGE SUBCUT (08:56)
[2019-03-14] MEDS: INSULIN GLARGINE 100 UNIT/ML 3ML PEN 10 UNIT SUBCUT (08:57)
[2019-03-14] MEDS: LISINOPRIL 20 MG TABLET PO (08:57)
[2019-03-14] MEDS: FOLIC ACID 1 MG TABLET PO (08:57)
[2019-03-14] MEDS: MULTIVITAMIN 1 TABLET 1 TAB PO (08:58)
[2019-03-14] MEDS: cloNIDine 0.1 MG TABLET PO (08:59)
[2019-03-14] MEDS: LORazepam 2 MG/ML INJ 1 MG IV (09:12)
--- NOTE | 2019-03-14 09:21 | PM.PN.1 ---
Subjective Date Patient Seen: 03/14/19 Interval history: Sanchez Cabello is a 58-year-old male with a past medical history significant for hypertension who presented for abrupt onset abdominal pain and was found to have acute pancreatitis. Patient is resting in bed comfortably. He is quite somnolent and continues to be significantly confused and delirious. He appears severely sleep deprived. Recommend patient try to sleep even if during the day as that is his usual time he sleeps with his employment. Plan to minimize distractions and continue treating suspected alcohol withdraw. Patient has no complaints overall. He is overly flautulent but has not had a BM since admission. Abdominal series demonstrated ileus for which general surgery has been consulted. His appetite is poor. He denies headache, chest pain, shortness of breath, abdominal pain, nausea, vomiting, dysuria, or diarrhea. Exam Vital Signs (past 8 hours): - 03/14/19 08:07 03/14/19 09:11 03/14/19 10:59 Temperature 98.3 F Pulse Rate 100 H Respiratory Rate 16 Blood Pressure 154/93 H Pulse Oximetry 92 90 L 93 Fraction of Inspired Oxygen 32 Oxygen Delivery Method Nasal Cannula Oxygen Flow Rate 4 Narrative Exam Narrative: General: Older male sitting in bed and in no acute distress, somnolent, confused and acutely delirious. HEENT: Normocephalic, atraumatic. External ears without defect. Pupils equal, round, and reactive to light. Anicteric sclerae, moist conjunctivae, and no lid lag. Neck: Supple with full range of motion. No jugular venous distension. No lymphadenopathy or thyromegaly. Cardiovascular: Regular rhythm, mild tachycardic, without murmurs, rubs, or gallops appreciated. Pulmonary: Clear to auscultation bilaterally without crackles, wheezes, or rhonchi. Normal respiratory effort with no use of accessory muscles. Abdomen: Soft, obese, bowel sounds present, nontender, nondistended. No hepatosplenomegaly or masses appreciated. Extremities: No clubbing, cyanosis, or edema. Skin: Normal temperature, turgor, and texture; no rash, ulcers, or subcutaneous nodules appreciated. Neurological: Cranial nerves grossly intact. Psychiatric: Confused and acutely delirious. Objective Labs Result Diagrams: 03/14/19 05:30 03/14/19 05:30 Labs: Laboratory Results - last 24 hr 03/13/19 03/14/19 03/14/19 16:55 05:30 05:30 WBC 13.3 H RBC 4.85 Hgb 14.4 Hct 42.2 MCV 87.1 MCH 29.8 MCHC 34.2 RDW 13.4 Plt Count 246 Neut % (Auto) 85.3 H Lymph % (Auto) 5.8 L [place] % (Auto) 8.4 Eos % (Auto) 0.3 L Baso % (Auto) 0.2 Neut # (Auto) 74146 H Lymph # (Auto) 800 L [place] # (Auto) 1100 H Eos # (Auto) 0 Baso # (Auto) 0 Sodium 136 L Potassium 4.0 Chloride 95 L Carbon Dioxide 33 H BUN 37 H Creatinine 1.20 Estimated GFR > 60.0 BUN/Creatinine Ratio 30.8 H Glucose 246 H Calcium 8.7 Magnesium 2.7 H Total Bilirubin 0.8 AST 22 ALT 19 L Alkaline Phosphatase 64 Total Creatine Kinase 65 CK-MB (CK-2) TNP CK-MB (CK-2) Rel Index TNP Troponin I < 0.012 Total Protein 6.6 Albumin 3.6 Globulin 3.0 Albumin/Globulin Ratio 1.2 Lipase Procalcitonin Urine Color Urine Appearance Urine pH Ur Specific [place] Urine Protein Urine Glucose (UA) Urine Ketones Urine Occult Blood Urine Nitrate Urine Bilirubin Urine Urobilinogen Ur Leukocyte Esterase Urine RBC Urine WBC Amorphous Sediment Urine Bacteria Hyaline Casts Granular Casts Urine Mucus Ur Culture Indicated? Vancomycin Trough 03/14/19 03/14/19 03/14/19 05:30 05:30 09:42 WBC RBC Hgb Hct MCV MCH MCHC RDW Plt Count Neut % (Auto) Lymph % (Auto) [place] % (Auto) Eos % (Auto) Baso % (Auto) Neut # (Auto) Lymph # (Auto) [place] # (Auto) Eos # (Auto) Baso # (Auto) Sodium Potassium Chloride Carbon Dioxide BUN Creatinine Estimated GFR BUN/Creatinine Ratio Glucose Calcium Magnesium Total Bilirubin AST ALT Alkaline Phosphatase Total Creatine Kinase CK-MB (CK-2) CK-MB (CK-2) Rel Index Troponin I Total Protein Albumin Globulin Albumin/Globulin Ratio Lipase 381 H Procalcitonin 1.73 H Urine Color Yellow Urine Appearance Clear Urine pH 5.0 Ur Specific [place] 1.025 Urine Protein 2+ H Urine Glucose (UA) Negative Urine Ketones Negative Urine Occult Blood 1+ H Urine Nitrate Negative Urine Bilirubin Negative Urine Urobilinogen 0.2 Ur Leukocyte Esterase Negative Urine RBC 0-1/hpf Urine WBC 5-10/hpf H Amorphous Sediment 1+ Urine Bacteria Many (>30) H Hyaline Casts 0-1/lpf Granular Casts 1-5/lpf Urine Mucus 1+ H Ur Culture Indicated? Specimen cultured Vancomycin Trough 03/14/19 10:05 WBC RBC Hgb Hct MCV MCH MCHC RDW Plt Count Neut % (Auto) Lymph % (Auto) [place] % (Auto) Eos % (Auto) Baso % (Auto) Neut # (Auto) Lymph # (Auto) [place] # (Auto) Eos # (Auto) Baso # (Auto) Sodium Potassium Chloride Carbon Dioxide BUN Creatinine Estimated GFR BUN/Creatinine Ratio Glucose Calcium Magnesium Total Bilirubin AST ALT Alkaline Phosphatase Total Creatine Kinase CK-MB (CK-2) CK-MB (CK-2) Rel Index Troponin I Total Protein Albumin Globulin Albumin/Globulin Ratio Lipase Procalcitonin Urine Color Urine Appearance Urine pH Ur Specific [place] Urine Protein Urine Glucose (UA) Urine Ketones Urine Occult Blood Urine Nitrate Urine Bilirubin Urine Urobilinogen Ur Leukocyte Esterase Urine RBC Urine WBC Amorphous Sediment Urine Bacteria Hyaline Casts Granular Casts Urine Mucus Ur Culture Indicated? Vancomycin Trough < 5.0 L Assessment & Plan Assessment & Plan narrative: Sanchez Cabello is a 58-year-old male with a past medical history significant for hypertension who presented for abrupt onset abdominal pain and was found to have acute pancreatitis. 1. Acute pancreatitis, present on admission. Resolving. -Etiology possibly due to alcohol and is somewhat unclear with vague report of use? No cholelithiasis, biliary or common bile duct dilatation. Hypertriglyceridemia ruled out. Medication side effect less likely. -Continue to advance diet as tolerated. -Continue IV zofran for nausea and/or vomiting. -Initial Lipase 14,280. Lipase normalized at 381. 2. Acute delirium versus alcohol withdrawal, not present on admission. Active. -Code stroke was called on 03/13 for reported left arm weakness by nurse and possible hypoxemic episode. Patient had no focal neurological deficits and NIH score was 0. -CT brain did not demonstrate any acute intracranial abnormality. -Ordered MR stroke protocol but canceled due to acute delerium and potential to exacerbate symptoms. -CTA performed which was negative for PE and demonstrated bibasilar atelectasis. Antibiotics were discontinued as patient has no other infectious signs or symptoms, WBC trending down without antibiotics, procalcitonin negative at 0.09 and ABG did not demonstrate hypoxemia and off O2. -EKG performed which demonstrated sinus tachycardia without any acute ischemic changes such as ST elevation or depression. Troponin within normal limits. -Concern for alcohol withdrawal as patient is diaphoretic, tachycardic, mildly anxious, and confused with vague reports that vary on amount of alcohol use and now with acute pancreatitis. Therefore, started CIWA protocol. Last CIWA score 18. 3. Acute ileus, present on admission. Active. -Secondary to acute inflammation from pancreatitis. -Continue to advance diet and ambulate often. -Discussed with general surgery and plan to evaluate. 4. Possible UTI, present on admission. -Urinalysis performed and appears may have mild UTI. -Continued Zosyn for broad spectrum coverage and possibility of pancreatic fluid infection now that WBC and PCT are trending up. 5. Essential hypertension, chronic, present on admission. Stable. -Continue home dose of lisinopril. 6. Prediabetes, chronic, present on admission. Stable. -Hemoglobin A1C 6.1%. -Continue [facility] blood glucose checks and low-dose correctional scale insulin. -Once diet has been advanced and is tolerated will start heart healthy/carbohydrate consistent diet. Disposition: Patient likely to discharge in several days depending improvement in acute delirium. Quality VTE Deep Vein Thrombosis/Pulmonary Embolism Present on Admission: No
[2019-03-14 10:49] LABS: Vancomycin Trough < 5.0 ug/mL (10-20)
[2019-03-14 10:58] LABS: Appearance Urine UA CLEAR; Bilirubin Urine UA NEGATIVE (NEGATIVE); Color Urine UA YELLOW; Glucose Urine UA NEGATIVE (Negative); Ketones Urine UA NEGATIVE (NEGATIVE); Leukocyte Esterase Urine UA NEGATIVE (NEGATIVE); Nitrite Urine UA NEGATIVE (Negative); Occult Blood Urine UA 1+ (Negative); Protein Urine UA 2+ (Negative); Specific Gravity Urine UA 1.025 (1.000-1.035); Urobilinogen Urine UA 0.2 E.U./dL (0.2)
--- NOTE | 2019-03-14 11:00 | PT.IPTN ---
Current Diagnoses Acute pancreatitis without necrosis or infection, unspecified (03/10/19) Hyperglycemia, unspecified (03/10/19) Physical Therapy Treatment Note M2 PT-IP Current Condition Start: 03/13/19 15:27 Freq: NEEDED Status: Active Protocol: Document 03/13/19 14:03 [facility] (Rec: 03/13/19 15:43 [facility] [id number]) Physical Therapy Current Condition Current Condition Evaluation Date 03/13/19 Treatment Diagnosis nausea, vomiting, impaired gait and activity tolerance M3 PT-IP Subjective Start: 03/13/19 15:27 Freq: NEEDED Status: Active Protocol: Document 03/14/19 11:00 CLB (Rec: 03/14/19 12:42 CLB [id number]) Subjective Physical Therapy Visit Type Type Patient Unavailable Notes RN stated pt on hold for today . M4 PT-IP Mobility and Gait Start: 03/13/19 15:27 Freq: NEEDED Status: Active Protocol: Document 03/13/19 14:03 RCC (Rec: 03/13/19 15:43 [facility] [id number]) PT-Bed Mobility Assessment Sit to Supine Sit to Supine Standby Assistance PT-Transfer Assessment Sit to and From Stand Sit to and from Stand Contact Guard Assistance Equipment Transfer Assistive Device Gait Belt Straight Cane Transfers Transfer Destination Bed Transfer Technique Stand Step Pivot Transfer Ability Level of Assist Minimal Assistance Comments Mobility Comments requires mod VC for getting back into bed; max VC and Min A to avoid objects Gait Assessment Gait Gait Assistance Required: Minimum Assistance Distance (Feet) 75 Assistive Devices Assistive Device Gait Belt Straight Cane Gait Deviations General Gait Pattern Ataxic Decreased Stride Length Decreased Feet Clearance Wide Based Gait Factors Limiting Gait Function Factors Limiting Gait Function Decreased Activity Tolerance Difficulty Following Directions Incoordination Poor Balance Poor Safety Awareness Comments Gait Comments Pt was told to walk toward the door into the hallway. He first walked to the window, and asked where is the door? He then proceeded to walk and opened up the linen closet and attempted to walk through, was confused, then when cued to look around the room he found the door but then attempted to open the door from the R vs the L side where there is handle. Pt inconsistent with gait pattern using a cane, required cuing to use properly (increased lateral sway without cane). He then required cuing to prevent him from running into a computer workstation on wheels. When asked to look to the left, he looked upward and then to the right PT-Balance Assessment Sitting Balance and Reactions Static Sitting Balance Ability Good Dynamic Sitting Balance Ability Good Standing Balance and Reactions Static Standing Balance Ability Fair Dynamic Standing Balance Ability Fair Device Used none Balance Tests Single Limb Standing unable Tandem Standing <2 sec B M5 PT-IP Objective Assessments Start: 03/13/19 15:27 Freq: NEEDED Status: Active Protocol: Document 03/13/19 14:03 [facility] (Rec: 03/13/19 15:43 [facility] [id number]) Orientation Orientation/Cognition Level of Alertness Lethargic Safety Awareness Decreased Safety Awareness Comments slow, but appropriate answers to questions Gross Range of Motion Lower Extremity ROM Assessment Within Functional Limits Strength Lower Extremity Strength Hip flexion 4/5 B Knee 5/5 B flexion and extension Ankle 5/5 B DF Coordination Assessment Gross Coordination Gross Coordination WNL Assessment Finger to Nose Test Normal Performance Pronation/Supination Test Normal Performance Foot Tapping Test Normal Performance Heel on Adorno Test Normal Performance Sensation Assessment Sensation Gross Sensation WNL Muscle Tone Muscle Tone WNL Yes M6 PT-IP Treatment Start: 03/13/19 15:27 Freq: NEEDED Status: Active Protocol: Document 03/13/19 14:03 [facility] (Rec: 03/13/19 15:43 [facility] [id number]) Physical Therapy Treatment Education Education Provided Safety Other Treatments Other Treatment Performed BP 144/88 after gait M7 PT-IP Assessment and Plan Start: 03/13/19 15:27 Freq: NEEDED Status: Active Protocol: Document 03/13/19 14:03 [facility] (Rec: 03/13/19 15:43 [facility] [id number]) PT Summary Assessment and Plan Potential Rehabilitation Potential Good Status of Condition at Evaluation Evolving Summary Impairments Balance Cognition Transfers Gait Activity Tolerance Assessment Summary Pt presents with 4/5 or greater strength with MMT, no significant difference between each side. His heel to opposite adorno testing was limited in sitting due to hip stiffness, but able to perform standing with UE support. Pt required max cuing to avoid obstacles in and outside of the room with ambulation, and attempted to open the linen close to walk out of the room when attempting to find the door. Pt with ataxic gait, and slow responses to questions and slow balance reactions with gait, increasing instability requiring Min A. Pt is well below his functional baseline, and very poor dynamic stability. Recommend continuation of skilled physical therapy during this episode of care for gait and balance training. He is not safe for d/c today. Goals Bed Mobility Goal Independent Transfer Goal Independent Gait Goal Independent Gait Distance 300 Days to Meet Goals 5 Frequency of Treatment Frequency Of Treatment Twice a Day Treatment Plan Physical Therapy Treatment Plan Transfer Training Gait Training Therapeutic Exercise Balance Retraining Discharge Planning Neuromuscular Re-ed Other Recommendations and Next Treatment gait training- Min A on Focus evaluation, balance training, continue to monitor for safety and visual awareness Recommendations To Nursing Amount of Assist Needed 1 Person Assist Discharge Recommendations PT Discharge Recommendations Home with Assistance Other Discharge Recommendations requires ongoing assessment Equipment Needed for Home Before SPC if does not improve Discharge
[2019-03-14 11:11] LABS: Amorphous Sediment Urine 1+; Bacteria Urine Many (>30); Culture Indicated Urine Specimen Cultured; Granular Casts Urine 1-5/LPF; Hyaline Casts Urine 0-1/LPF; Mucus Urine 1+ (Negative); RBC Urine 0-1/HPF (0-5/HPF)
[2019-03-14 11:12] LABS: WBC Urine 5-10/HPF (0-5/HPF)
[2019-03-14] MEDS: LORazepam 2 MG/ML INJ IV (12:36)
--- NOTE | 2019-03-14 12:41 | PC.NURSE ---
Day shift: CIWA score of 10. Gave Pt 1mg IV Ativan. VS remain stable. 4L NC 93%. Pt knows and full name and this publicity writer but though he was at his friends house. Bed alarm is on. Remains HFR. Will continue to monitor.
--- NOTE | 2019-03-14 14:00 | CM.DPC ---
DCP Cont: Spoke to Dr. Guzman and nursing, and it was concurred that case should be turned over to LASTING ROOM SUPERVISOR. Spoke to CAMILLE Sargent, and she has agreed to take over case. P: Case is now handed off to LASTING ROOM SUPERVISOR. Katiana Dickinson RN, Security Business Analyst
[2019-03-14] MEDS: SODIUM CHLORIDE 0.9% 250 ML 21 ML IV (15:35)
--- NOTE | 2019-03-14 20:02 | PM.CN ---
History of Present Illness Date Patient Seen: 03/14/19 Time Patient Seen: 19:00 Chief complaint: NAUSEA, VOMITING Reason for consult: pancreatitis Narrative: 58 yo man with hx of HTN and obesity now HD5 admitted for acute pancreatitis. Briefly he developed progressive mid abdominal pain that did not radiate after a meal with associated malase and nausea. Was seen in ED where found to have lipase of [address] scan showing significant peripancreatic and intrapancreatic cyst edema. Minimal amount of free fluid within the lesser sac. Patient was admitted started on IV fluids. Bowel rest. Source of pancreatitis somewhat unclear. Ultrasound demonstrated no gallstones, total bilirubin normal at 1.1, repeat labs 0.8. Common bile duct not dilated at 5.6 mm. Triglycerides within normal limits Patient endorses drinking a couple beers every few days -I was not able to obtain more specific info from patient. Today patient overall feels quite well, his abdominal pain is reduced, he is thinking more clearly. Having normal bowel function with flatus and regular bowel. Not yet hungery [facility] Medical History (Updated 03/10/19 @ 04:48 by Mckay Uriostegui MD) Essential hypertension (Acute) Hypertension (Acute) Surgical History History of umbilical hernia repair (Acute) Family History Child Age: 30 Bipolar 1 disorder Father Diabetes mellitus Mother Age: 84 Hypertension Stroke Sister Age: 59 Diabetes mellitus Family History Child Age: 30 Bipolar 1 disorder Father Diabetes mellitus Mother Age: 84 Hypertension Stroke Sister Age: 59 Diabetes mellitus Social History household members: spouse Smoking Status: Former smoker alcohol intake: current Meds Home Medications Medication Instructions Recorded Confirmed Type famciclovir 250 mg PO SEE INSTRUCTIONS PRN #30 02/24/17 Rx tab hydrochlorothiazide 25 mg PO QDAY #30 tab 02/24/17 Rx lisinopril [Prinivil] 20 mg PO Q DAY #30 tab 02/24/17 Rx Allergies Allergy/AdvReac Type Severity Reaction Status Date / Time No Known Allergies Allergy Verified 03/14/19 07:30 lactose AdvReac Mild milk, Verified 03/14/19 07:30 cheese - cough Review of Systems Constitutional Constitutional: Denies fever(s) Eyes Eyes: Denies bulging eyes ENT Ears, Nose, Mouth, and Throat: No lip swelling Cardiovascular Cardiovascular: Denies generalize swelling Respiratory Respiratory: Denies stridor Gastrointestinal Gastrointestinal: Denies coffee ground emesis Musculoskeletal Musculoskeletal: Denies loss of height Integumentary/Breasts Skin/Breast: Denies wounds Neurologic Neurologic: Denies abnormal speech and Denies confusion Psychiatric Psychiatric: Denies confusion Endocrine Endocrine: Denies deepening of the voice Hematologic/Lymphatic Hematologic/Lymphatic: Denies lymphadenopathy Allergic/Immunologic Allergic/Immunologic: Denies lip swelling Exam Vital Signs (past 8 hours): - 03/14/19 15:49 03/14/19 17:20 03/14/19 19:49 Temperature 98.8 F Pulse Rate 101 H Respiratory Rate 18 Blood Pressure 146/77 H Pulse Oximetry 94 95 94 Fraction of Inspired Oxygen 32 Oxygen Delivery Method Nasal Cannula Oxygen Flow Rate 3 Const Orientation: alert HENSC Head: normal to inspection Nose: nares normal Mouth: oral mucosae normal and lip normal Eyes Eyelids: eyelids normal Conjunctivae: conjunctivae normal Sclera: sclerae normal Neck Neck: supple and other (No thyromegally) Chest Chest: other (LCTAB , regular respiratory effort) Cardio Rhythm: regular rhythm Heart Sounds: S1 normal, S2 normal, no gallops, no murmurs and no rubs GI Other: Protruding print abdomen, no surgical incision, hypoactive bowel sounds, tympanitic to percussion, no hepatosplenomegaly, tender to palpation in low epigastrium but relatively minor. Negative bed shake test, no reflexive guarding, no rebound. No masses detected Skin General: no rashes or lesions noted Neuro General: alert and other (Oriented to year, month, day, time, floor hospital, name of hospital) Psych Appearance: grossly normal Affect: normal affect Objective Labs Result Diagrams: 03/14/19 05:30 03/14/19 05:30 Labs: Laboratory Results - last 24 hr 03/14/19 03/14/19 03/14/19 05:30 05:30 05:30 WBC 13.3 H RBC 4.85 Hgb 14.4 Hct 42.2 MCV 87.1 MCH 29.8 MCHC 34.2 RDW 13.4 Plt Count 246 Neut % (Auto) 85.3 H Lymph % (Auto) 5.8 L [place] % (Auto) 8.4 Eos % (Auto) 0.3 L Baso % (Auto) 0.2 Neut # (Auto) 05452 H Lymph # (Auto) 800 L [place] # (Auto) 1100 H Eos # (Auto) 0 Baso # (Auto) 0 Sodium 136 L Potassium 4.0 Chloride 95 L Carbon Dioxide 33 H BUN 37 H Creatinine 1.20 Estimated GFR > 60.0 BUN/Creatinine Ratio 30.8 H Glucose 246 H Calcium 8.7 Magnesium 2.7 H Total Bilirubin 0.8 AST 22 ALT 19 L Alkaline Phosphatase 64 Total Protein 6.6 Albumin 3.6 Globulin 3.0 Albumin/Globulin Ratio 1.2 Lipase 381 H Procalcitonin Urine Color Urine Appearance Urine pH Ur Specific [place] Urine Protein Urine Glucose (UA) Urine Ketones Urine Occult Blood Urine Nitrate Urine Bilirubin Urine Urobilinogen Ur Leukocyte Esterase Urine RBC Urine WBC Amorphous Sediment Urine Bacteria Hyaline Casts Granular Casts Urine Mucus Ur Culture Indicated? Vancomycin Trough 03/14/19 03/14/19 03/14/19 05:30 09:42 10:05 WBC RBC Hgb Hct MCV MCH MCHC RDW Plt Count Neut % (Auto) Lymph % (Auto) [place] % (Auto) Eos % (Auto) Baso % (Auto) Neut # (Auto) Lymph # (Auto) [place] # (Auto) Eos # (Auto) Baso # (Auto) Sodium Potassium Chloride Carbon Dioxide BUN Creatinine Estimated GFR BUN/Creatinine Ratio Glucose Calcium Magnesium Total Bilirubin AST ALT Alkaline Phosphatase Total Protein Albumin Globulin Albumin/Globulin Ratio Lipase Procalcitonin 1.73 H Urine Color Yellow Urine Appearance Clear Urine pH 5.0 Ur Specific [place] 1.025 Urine Protein 2+ H Urine Glucose (UA) Negative Urine Ketones Negative Urine Occult Blood 1+ H Urine Nitrate Negative Urine Bilirubin Negative Urine Urobilinogen 0.2 Ur Leukocyte Esterase Negative Urine RBC 0-1/hpf Urine WBC 5-10/hpf H Amorphous Sediment 1+ Urine Bacteria Many (>30) H Hyaline Casts 0-1/lpf Granular Casts 1-5/lpf Urine Mucus 1+ H Ur Culture Indicated? Specimen cultured Vancomycin Trough < 5.0 L Assessment & Plan Assessment & Plan narrative: A 58-year-old man hospital day 5 with acute likely etoh pancreatitis but other possible etiologies still on ddx, largely improving. Has waxing and waning delirium -also improved Acute pancreatitis-clinically improving with improving bowel function, mentation, reduce pain and tenderness. 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 No good evidence of peripancreatic tissue infection. Would stop antibiotics -glucose control with goal 100-180 Leukocytosis with increase in procalcitonin - suspecte pancreatitis related - follow up urine culture Delerum Appers to be clearing, suspect toxic metabolic vs withdrawel, seems to be responsive to benzos Surgery will sign off
--- NOTE | 2019-03-14 22:39 | PC.NURSE ---
Evening note: Sanchez has mostly slept tonight. When wakes, sits up setting off bed alarm. Looks startled but calm & cooperative. Appears to wake when he is incontinent of stool. Expressed apologies to staff, answering questions appropriately & he is cooperative when instructed to do something. He is oriented to hospital, told me it was Thursday the . Has been incontinent 3 times, of loose liquid brown stool, also able to transfer to [facility] to have further liquid BM. Partial bed baths given & entire bed has been changed all 3 times. Able to wean his O2 to 3L, sats maintaining 93-94% VS remain stable. He denies pain, nausea or SOB. Denies hallucinations. He is calm with no tremor, CIWA score = 1. After transfer back to bed he immediately falls into deep sleep again. Pt oriented to person place & situation when surgeon in room to consult. His son Kate was present during surgeon consult. He asked me to print off all of Aleks chart, I directed him to to Medical Records. I also encouraged him to speak with patient's Aylin. He immediately said she doesn't know anything. Sanchez asked me that I add Kate to patient contact list which I did.
[2019-03-15] VITALS (9 sets, daily range): BP systolic 140–157; BP diastolic 83–93; PULSE 87–95; RESP 17–18; TEMP 36.3–36.9; O2SAT 87–95
--- NOTE | 2019-03-15 03:31 | PC.NURSE ---
Shift note: Received pt from evening shift. During assessment pt was calm and cooperative with no complaints, oriented to self, situation and place. Abdomen is quite round with tympanic bowel sounds but no c/o nausea/vomiting and passing flatus. Report from evening shift is that pt is incontinent of stool. During one pt check found pt to be agitated, confused about how long he'd been hospitalized and if it was even still , and that he hadn't seen his or friends in days. Reoriented pt to situation, pt has no memory of events of last several days, that his has been in to see him regularly, and that he was safe. This RN was coming out of the med room and heard help, help, help coming from pt's room. Found pt lying in bed and asked him if he was okay to which pt reported that he needed to have a bowel movement. Prepared to move pt to bedside commode and discovered that pt had had a large episode of fecal incontinence. MOLDER came in to assist with linen change and to assist in cleaning pt as he had stool up his back and down his legs. Pt was distressed about the situation, reassured pt that we would take care of him, changed his gown after he was clean and transferred him back to bed. Pt was calm and cooperative with care. Re-educated pt on use of call light, pt remains a high fall risk d/t his confusion, agitation, and difficulty ambulating.
[2019-03-15] MEDS: PIPERACILLIN-TAZO 3.375 GM/50 ML FROZ.PIGGY IV ×3 (06:47→23:38)
--- NOTE | 2019-03-15 07:30 | PM.PN.1 ---
Subjective Date Patient Seen: 03/15/19 Interval history: Sanchez Cabello is a 58-year-old male with a past medical history significant for hypertension who presented for abrupt onset abdominal pain and was found to have acute pancreatitis. Patient is resting in bed comfortably. Patient is alert and oriented x3. He continues to have and odd gaze and does not make eye contact. He appears to be looking above or below eye level. When asked specifically about his gaze he is able to make direct eye contact. He has no complaints and reports that he is moving his bowels. He has a good appetite. Plan to slowly advance diet. Patient is voiding and eliminating without difficulty. Patient is up with assistance and plan to continue physical and occupational therapy. Exam Vital Signs (past 8 hours): - 03/14/19 23:36 03/15/19 00:59 03/15/19 03:30 Temperature 98.4 F 98.5 F Pulse Rate 90 92 H Respiratory Rate 19 18 Blood Pressure 130/91 H 146/86 H Pulse Oximetry 98 92 95 Fraction of Inspired Oxygen 32 Oxygen Delivery Method Nasal Cannula Oxygen Flow Rate 4 Narrative Exam Narrative: General: Older male sitting in bed and in no acute distress, confusion resolving. HEENT: Normocephalic, atraumatic. External ears without defect. Pupils equal, round, and reactive to light. Anicteric sclerae, moist conjunctivae, and no lid lag. Odd gaze and appears to look above or below eye level. Neck: Supple with full range of motion. No jugular venous distension. No lymphadenopathy or thyromegaly. Cardiovascular: Regular rhythm and rate without murmurs, rubs, or gallops appreciated. Pulmonary: Clear to auscultation bilaterally without crackles, wheezes, or rhonchi. Normal respiratory effort with no use of accessory muscles. Abdomen: Soft, obese, bowel sounds present, nontender, nondistended. No hepatosplenomegaly or masses appreciated. Extremities: No clubbing, cyanosis, or edema. Skin: Normal temperature, turgor, and texture; no rash, ulcers, or subcutaneous nodules appreciated. Neurological: Cranial nerves grossly intact. Psychiatric: Alert and oriented x3. Normal mood with flat affect. Confusion appears to be resolving. Objective Labs Result Diagrams: 03/16/19 05:20 03/15/19 07:30 Labs: Laboratory Results - last 24 hr 03/14/19 03/14/1903/14/19 05:30 05:30 09:42 Lipase 381 H Procalcitonin 1.73 H Urine Color Yellow Urine Appearance Clear Urine pH 5.0 Ur Specific [place] 1.025 Urine Protein 2+ H Urine Glucose (UA) Negative Urine Ketones Negative Urine Occult Blood 1+ H Urine Nitrate Negative Urine Bilirubin Negative Urine Urobilinogen 0.2 Ur Leukocyte Esterase Negative Urine RBC 0-1/hpf Urine WBC 5-10/hpf H Amorphous Sediment 1+ Urine Bacteria Many (>30) H Hyaline Casts 0-1/lpf Granular Casts 1-5/lpf Urine Mucus 1+ H Ur Culture Indicated? Specimen cultured Vancomycin Trough 03/14/19 10:05 Lipase Procalcitonin Urine Color Urine Appearance Urine pH Ur Specific [place] Urine Protein Urine Glucose (UA) Urine Ketones Urine Occult Blood Urine Nitrate Urine Bilirubin Urine Urobilinogen Ur Leukocyte Esterase Urine RBC Urine WBC Amorphous Sediment Urine Bacteria Hyaline Casts Granular Casts Urine Mucus Ur Culture Indicated? Vancomycin Trough < 5.0 L Assessment & Plan Assessment & Plan narrative: Sanchez Cabello is a 58-year-old male with a past medical history significant for hypertension who presented for abrupt onset abdominal pain and was found to have acute pancreatitis. 1. Acute pancreatitis, present on admission. Resolved. -Etiology possibly due to alcohol and is somewhat unclear with vague report of use? No cholelithiasis, biliary or common bile duct dilatation. Hypertriglyceridemia ruled out. Medication side effect less likely. -Continue to advance diet as tolerated. -Continue IV zofran for nausea and/or vomiting. -Initial Lipase 14,280. Lipase close to normal at 381. 2. Acute delirium versus alcohol withdrawal, not present on admission. Resolving. -Code stroke was called on 03/13 for reported left arm weakness by nurse and possible hypoxemic episode. Patient had no focal neurological deficits and NIH score was 0. -CT brain did not demonstrate any acute intracranial abnormality. -Ordered MR stroke protocol but canceled due to acute delerium and potential to exacerbate symptoms. -CTA performed which was negative for PE and demonstrated bibasilar atelectasis. Antibiotics were discontinued as patient has no other infectious signs or symptoms, WBC trending down without antibiotics, procalcitonin negative at 0.09 and ABG did not demonstrate hypoxemia and off O2. -EKG performed which demonstrated sinus tachycardia without any acute ischemic changes such as ST elevation or depression. Troponin within normal limits. -Concern for alcohol withdrawal as patient was diaphoretic, tachycardic, mildly anxious, and confused with vague reports that vary on amount of alcohol use and now with acute pancreatitis. Therefore, started CIWA protocol and now resolving. 3. Acute ileus, present on admission. Resolved. -Secondary to acute inflammation from pancreatitis. -Continue to advance diet and ambulate often. -General surgery evaluated and recommended continued ambulation and to slowly advance diet. -Patient now having bowel movements and tolerating advancement of diet. 4. Possible UTI, present on admission. Active. -Urinalysis performed and appears may have mild UTI. -Continued Zosyn for broad spectrum coverage and possibility of pancreatic fluid infection now that WBC and PCT are trending up. 5. Essential hypertension, chronic, present on admission. Stable. -Continue home dose of lisinopril. 6. Prediabetes, chronic, present on admission. Stable. -Hemoglobin A1C 6.1%. -Continue [facility] blood glucose checks and low-dose correctional scale insulin. -Once diet has been advanced and is tolerated will start heart healthy/carbohydrate consistent diet. Disposition: Patient likely to discharge home possibly tomorrow. Quality VTE Deep Vein Thrombosis/Pulmonary Embolism Present on Admission: No
[2019-03-15 07:40] LABS: Hematocrit 41.6 % (41-53); Hemoglobin 13.8 g/dL (13.5-17.5); Mean Corpuscular HGB Conc 33.2 % (30-36); Mean Corpuscular Hemoglobin 29.6 PG (26-34); Mean Corpuscular Volume 89.1 fL (80-100); Platelet Count 258 X10^3/uL (150-400); Red Blood Cell Count 4.66 X10^6/uL (4.5-5.9); Red Cell Distribution Width 13.3 % (11.6-14.8); White Blood Cell Count 13.2 X10^3/uL (4.5-11.0)
[2019-03-15 07:41] LABS: Add Manual Diff / Slide Review YES
[2019-03-15 07:53] LABS: Alanine Aminotransferase 28 IU/L (21-72); Albumin 3.5 g/dL (3.5-5.0); Albumin Globulin Ratio 1.2 (1.0-2.8); Alkaline Phosphatase 64 U/L (38-126); Aspartate Aminotransferase 32 IU/L (17-59); BUN Creatinine Ratio 36.7 (6-22); Bilirubin Total 0.7 mg/dL (0.2-1.3); Blood Urea Nitrogen 33 mg/dL (9-20); Calcium 8.6 mg/dL (8.4-10.2); Carbon Dioxide 31 mmol/L (22-32); Chloride 102 mmol/L (98-107); Estimated Glomerular Filt Rate > 60.0 mL/min (>60); Glucose 216 mg/dL (70-100); HEMOLYSIS < 15 (0-50); Potassium 3.8 mmol/L (3.4-5.1); Sodium 139 mmol/L (137-145); Total Protein 6.5 g/dL (6.3-8.2)
[2019-03-15 07:59] LABS: Neutrophils Absolute Manual 11352 /uL (3000-5900); Total Cells Counted 100
[2019-03-15 08:00] LABS: RBC Morphology Normal Morphology
[2019-03-15 08:11] LABS: Procalcitonin 0.83 ng/mL (<0.5)
--- NOTE | 2019-03-15 08:25 | CM.SWNOTE ---
ADVERTISING SPECIALIST/DCP Note: (Late Entry 03-14-19) Briefly reviewed chart. Dr. Guzman and DCP/Ambika requesting ADVERTISING SPECIALIST assistance with d/c planning. Per notes, patient currently with probable pancreatitis possibly related to alcohol abuse. However, patient and spouse/Aylin deny that patient drinks that much. Met for approximately 30 minutes with step daughter/Shea and spouse/Aylin re: ADVERTISING SPECIALIST role. Spouse very teary during visit. Patient sound asleep today and unable to interview. Spouse reports that she just want answers re: patient's medical status. Spouse reports that patient completely I with all ADL's prior to admit. 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 Currently, spouse reports that patient is groggy, confused and she feels that this is nothing like his baseline. Spouse does not believe patient's current state is related to alcohol withdrawal. Spouse in agreement, to go home tonight to get some rest. Notified RN, and PRIMER INSPECTOR to call her at home if needed otherwise, let her sleep. If patient wakes up Rn asked by spouse to tell him she will be back tomorrow in AM. Spouse visibly upset and has no idea what d/c planning will look like. Patient has PCP/Dr. Jenkins in [place] ADVERTISING SPECIALIST asked that [facility] obtain medical records from his PCP visit this year. Also asked for previous PCP records from [facility] in 2017. Hopefully they will shed some light on whether or not patient has had alcohol history? P: Pending. Will plan to meet with spouse on 03-15-19 to determine next steps. At this time patient is not medically stable for discharge. CAMILLE Mendieta
[2019-03-15] MEDS: ASPIRIN EC 81 MG TABLET PO (09:27)
[2019-03-15] MEDS: ENOXAPARIN 40 MG/0.4 ML SYRINGE SUBCUT (09:27)
[2019-03-15] MEDS: MULTIVITAMIN 1 TABLET 1 TAB PO (09:28)
[2019-03-15] MEDS: THIAMINE 100 MG TABLET PO (09:28)
[2019-03-15] MEDS: LISINOPRIL 20 MG TABLET PO (09:28)
[2019-03-15] MEDS: FOLIC ACID 1 MG TABLET PO (09:28)
[2019-03-15] MEDS: ACETAMINOPHEN 325 MG TABLET 650 MG PO (09:31)
[2019-03-15] MEDS: DOCUSATE 100 MG CAPSULE PO (09:32)
[2019-03-15] MEDS: INSULIN GLARGINE 100 UNIT/ML 3ML PEN 10 UNIT SUBCUT (09:34)
--- NOTE | 2019-03-15 11:53 | PT.IPTN ---
Current Diagnoses Acute pancreatitis without necrosis or infection, unspecified (03/10/19) Hyperglycemia, unspecified (03/10/19) Physical Therapy Treatment Note M2 PT-IP Current Condition Start: 03/13/19 15:27 Freq: NEEDED Status: Active Protocol: Document 03/13/19 14:03 [facility] (Rec: 03/13/19 15:43 [facility] [id number]) Physical Therapy Current Condition Current Condition Evaluation Date 03/13/19 Treatment Diagnosis nausea, vomiting, impaired gait and activity tolerance M3 PT-IP Subjective Start: 03/13/19 15:27 Freq: NEEDED Status: Active Protocol: Document 03/15/19 11:52 [facility] (Rec: 03/15/19 11:53 [facility] [id number]) Subjective Physical Therapy Visit Type Type Patient Refusal Notes Pt extremely groggy upon waking him up. RN felt it was better to wait until he was more awake. Will check back with pt in PM. M4 PT-IP Mobility and Gait Start: 03/13/19 15:27 Freq: NEEDED Status: Active Protocol: Document 03/13/19 14:03 [facility] (Rec: 03/13/19 15:43 [facility] [id number]) PT-Bed Mobility Assessment Sit to Supine Sit to Supine Standby Assistance PT-Transfer Assessment Sit to and From Stand Sit to and from Stand Contact Guard Assistance Equipment Transfer Assistive Device Gait Belt Straight Cane Transfers Transfer Destination Bed Transfer Technique Stand Step Pivot Transfer Ability Level of Assist Minimal Assistance Comments Mobility Comments requires mod VC for getting back into bed; max VC and Min A to avoid objects Gait Assessment Gait Gait Assistance Required: Minimum Assistance Distance (Feet) 75 Assistive Devices Assistive Device Gait Belt Straight Cane Gait Deviations General Gait Pattern Ataxic Decreased Stride Length Decreased Feet Clearance Wide Based Gait Factors Limiting Gait Function Factors Limiting Gait Function Decreased Activity Tolerance Difficulty Following Directions Incoordination Poor Balance Poor Safety Awareness Comments Gait Comments Pt was told to walk toward the door into the hallway. He first walked to the window, and asked where is the door? He then proceeded to walk and opened up the linen closet and attempted to walk through, was confused, then when cued to look around the room he found the door but then attempted to open the door from the R vs the L side where there is handle. Pt inconsistent with gait pattern using a cane, required cuing to use properly (increased lateral sway without cane). He then required cuing to prevent him from running into a computer workstation on wheels. When asked to look to the left, he looked upward and then to the right PT-Balance Assessment Sitting Balance and Reactions Static Sitting Balance Ability Good Dynamic Sitting Balance Ability Good Standing Balance and Reactions Static Standing Balance Ability Fair Dynamic Standing Balance Ability Fair Device Used none Balance Tests Single Limb Standing unable Tandem Standing <2 sec B M5 PT-IP Objective Assessments Start: 03/13/19 15:27 Freq: NEEDED Status: Active Protocol: Document 03/13/19 14:03 [facility] (Rec: 03/13/19 15:43 [facility] [id number]) Orientation Orientation/Cognition Level of Alertness Lethargic Safety Awareness Decreased Safety Awareness Comments slow, but appropriate answers to questions Gross Range of Motion Lower Extremity ROM Assessment Within Functional Limits Strength Lower Extremity Strength Hip flexion 4/5 B Knee 5/5 B flexion and extension Ankle 5/5 B DF Coordination Assessment Gross Coordination Gross Coordination WNL Assessment Finger to Nose Test Normal Performance Pronation/Supination Test Normal Performance Foot Tapping Test Normal Performance Heel on Adorno Test Normal Performance Sensation Assessment Sensation Gross Sensation WNL Muscle Tone Muscle Tone WNL Yes M6 PT-IP Treatment Start: 03/13/19 15:27 Freq: NEEDED Status: Active Protocol: Document 03/13/19 14:03 [facility] (Rec: 03/13/19 15:43 [facility] [id number]) Physical Therapy Treatment Education Education Provided Safety Other Treatments Other Treatment Performed BP 144/88 after gait M7 PT-IP Assessment and Plan Start: 03/13/19 15:27 Freq: NEEDED Status: Active Protocol: Document 03/13/19 14:03 [facility] (Rec: 03/13/19 15:43 [facility] [id number]) PT Summary Assessment and Plan Potential Rehabilitation Potential Good Status of Condition at Evaluation Evolving Summary Impairments Balance Cognition Transfers Gait Activity Tolerance Assessment Summary Pt presents with 4/5 or greater strength with MMT, no significant difference between each side. His heel to opposite adorno testing was limited in sitting due to hip stiffness, but able to perform standing with UE support. Pt required max cuing to avoid obstacles in and outside of the room with ambulation, and attempted to open the linen close to walk out of the room when attempting to find the door. Pt with ataxic gait, and slow responses to questions and slow balance reactions with gait, increasing instability requiring Min A. Pt is well below his functional baseline, and very poor dynamic stability. Recommend continuation of skilled physical therapy during this episode of care for gait and balance training. He is not safe for d/c today. Goals Bed Mobility Goal Independent Transfer Goal Independent Gait Goal Independent Gait Distance 300 Days to Meet Goals 5 Frequency of Treatment Frequency Of Treatment Twice a Day Treatment Plan Physical Therapy Treatment Plan Transfer Training Gait Training Therapeutic Exercise Balance Retraining Discharge Planning Neuromuscular Re-ed Other Recommendations and Next Treatment gait training- Min A on Focus evaluation, balance training, continue to monitor for safety and visual awareness Recommendations To Nursing Amount of Assist Needed 1 Person Assist Discharge Recommendations PT Discharge Recommendations Home with Assistance Other Discharge Recommendations requires ongoing assessment Equipment Needed for Home Before SPC if does not improve Discharge
--- NOTE | 2019-03-15 14:50 | PT.IPTN ---
Current Diagnoses Acute pancreatitis without necrosis or infection, unspecified (03/10/19) Hyperglycemia, unspecified (03/10/19) Physical Therapy Treatment Note M2 PT-IP Current Condition Start: 03/13/19 15:27 Freq: NEEDED Status: Active Protocol: Document 03/13/19 14:03 [facility] (Rec: 03/13/19 15:43 [facility] [id number]) Physical Therapy Current Condition Current Condition Evaluation Date 03/13/19 Treatment Diagnosis nausea, vomiting, impaired gait and activity tolerance M3 PT-IP Subjective Start: 03/13/19 15:27 Freq: NEEDED Status: Active Protocol: Document 03/15/19 14:30 [facility] (Rec: 03/15/19 16:17 [facility] [id number]) Subjective Physical Therapy Visit Type Type Treatment Note Visit Start Time 14:30 Visit Stop Time 14:50 Total Visit Minutes 20 Number of INSOLE ROUNDER Visits 1 Physical Therapy Visit Comments Patient Comments Pt agreeable to ambulate. present during tx. Therapy Pain Assessment Pain Present Pain Present Denied Pain M4 PT-IP Mobility and Gait Start: 03/13/19 15:27 Freq: NEEDED Status: Active Protocol: Document 03/15/19 14:30 [facility] (Rec: 03/15/19 16:17 [facility] [id number]) PT-Bed Mobility Assessment Supine to Sit Supine to Sit Standby Assistance Sit to Supine Sit to Supine Standby Assistance Scooting Scooting to Edge of Bed Standby Assistance Scooting Up and Down in Bed Standby Assistance PT-Transfer Assessment Sit to and From Stand Sit to and from Stand Contact Guard Assistance Equipment Transfer Assistive Device Gait Belt Transfers Transfer Destination Bed Transfer Technique Stand Step Pivot Transfer Ability Level of Assist Contact Guard Assistance Comments Mobility Comments Pt able to perform bed mobility SBA with cues to scoot up in bed so feet aren't as close to foot board. Gait Assessment Gait Gait Assistance Required: Contact Guard Assist Minimum Assistance Distance (Feet) 150 Assistive Devices Assistive Device Gait Belt Gait Deviations General Gait Pattern Ataxic Decreased Stride Length Decreased Feet Clearance Wide Based Gait Factors Limiting Gait Function Factors Limiting Gait Function Decreased Activity Tolerance Difficulty Following Directions Incoordination Poor Balance Poor Safety Awareness Comments Gait Comments Pt requiring CGA-Min A w/o AD with gait. M5 PT-IP Objective Assessments Start: 03/13/19 15:27 Freq: NEEDED Status: Active Protocol: Document 03/13/19 14:03 [facility] (Rec: 03/13/19 15:43 [facility] [id number]) Orientation Orientation/Cognition Level of Alertness Lethargic Safety Awareness Decreased Safety Awareness Comments slow, but appropriate answers to questions Gross Range of Motion Lower Extremity ROM Assessment Within Functional Limits Strength Lower Extremity Strength Hip flexion 4/5 B Knee 5/5 B flexion and extension Ankle 5/5 B DF Coordination Assessment Gross Coordination Gross Coordination WNL Assessment Finger to Nose Test Normal Performance Pronation/Supination Test Normal Performance Foot Tapping Test Normal Performance Heel on Rogers Test Normal Performance Sensation Assessment Sensation Gross Sensation WNL Muscle Tone Muscle Tone WNL Yes M6 PT-IP Treatment Start: 03/13/19 15:27 Freq: NEEDED Status: Active Protocol: Document 03/15/19 14:30 [facility] (Rec: 03/15/19 16:17 [facility]B [id number]) Physical Therapy Treatment Exercises Exercises Ankle Pumps M7 PT-IP Assessment and Plan Start: 03/13/19 15:27 Freq: NEEDED Status: Active Protocol: Document 03/15/19 14:30 [facility] (Rec: 03/15/19 16:17 CLB [id number]) PT Summary Assessment and Plan Summary Impairments Balance Cognition Transfers Gait Activity Tolerance Assessment Summary Pt able to walk to door and open door. Pt ambulated ~75ft and was able to turn around when asked to turn at next davis line. Pt turned and walked to end of [place] and had a seated rest break ~4 minutes , pt then told his room number and was able to find his room correctly. Pt however continues to need cues to watch obstacles in [place] ( computers and carts) pt also was unable to get through opening between door and bed without cues to prevent hitting door with his left shoulder. Pt required CGA-Min A for gait. Pt had swaying gait at times but had no LOB with gait. Goals Bed Mobility Goal Independent Transfer Goal Independent Gait Goal Independent Gait Distance 300 Days to Meet Goals 5 Frequency of Treatment Frequency Of Treatment Twice a Day Treatment Plan Physical Therapy Treatment Plan Transfer Training Gait Training Therapeutic Exercise Balance Retraining Discharge Planning Neuromuscular Re-ed Other Recommendations and Next Treatment gait training- Min A on Focus evaluation, balance training, continue to monitor for safety and visual awareness Recommendations To Nursing Amount of Assist Needed 1 Person Assist Discharge Recommendations PT Discharge Recommendations Home with Assistance Other Discharge Recommendations requires ongoing assessment Equipment Needed for Home Before SPC if does not improve Discharge
--- NOTE | 2019-03-15 15:23 | DIET.PN ---
Received diet consult r/t ETOH. Per notes, pt and deny excessive ETOH consumption. Spoke w/ in [place] while pt slept. Reports pt will be seeing a GI specialist. feels pt is sleep deprived which may contribute to his confusion. Dx: pancreatitis. Diet: Full liquid BMI 40 Intervention: Provided education to on diet for pancreatitis. suggest when diet advances to provide low fat diet (25g/day rec for acute pancreatitis)
--- NOTE | 2019-03-15 15:58 | OT.IP.TRT ---
Current Diagnoses Acute pancreatitis without necrosis or infection, unspecified (03/10/19) Hyperglycemia, unspecified (03/10/19) Occupational Therapy Treatment Note M3 OT- IP Subjective and Pain Start: 03/15/19 15:56 Freq: Status: Active Protocol: Document 03/15/19 15:56 [facility] (Rec: 03/15/19 15:58 [facility] [id number]) OT- Subjective Occupational Therapy Visit Type Type Patient Refusal Notes Just recieved OT eval order for pt, approached pt for OT eval and pt states feels too tired and would prefer to do OT eval in the morning.
--- NOTE | 2019-03-15 16:07 | CM.DPC ---
DCP/continued: Reviewed chart. Per MD and nursing staff patient doing much better today. OT evaluation pending. TRANSFORMER ASSEMBLY SUPERVISOR met briefly with spouse to discuss plan and offer support. Current d/c plan is for patient to return home. Records sent from PCP and [facility] offices not mention of alcoholism in records. TRANSFORMER ASSEMBLY SUPERVISOR met with patient today as well. Patient alert and oriented at time of visit but reports that he is sleepy. Patient unclear on what cause this sudden onset of n/v. Patient does report that he drinks alcohol but denies drinking everyday. Spouse reports that she plans to remove all alcohol from the residence and she has spoken to patient about not drinking at all. Both patient and spouse in agreement. P: Home when stable. Therapy following. OT evaluation tomorrow 03-16-19. CAMILLE Mendieta
--- NOTE | 2019-03-15 19:48 | CM.MNRNOTE ---
Evening note: Sanchez is dozing in bed, awakes easily to voice, is oriented x 3 and to situation. Told me I feel so much better today. He told me he does not remember me at all from yesterday evening shift. Verbally denies pain or nausea. No tremor, denies hallucinations, CIWA score is zero. VS stable, BP elevated at 147/85. IV antibiotic infused. Drinking sips of water & ramiro lashonda but refused dinner tray. Will try to have him drink ensure tonight, PO intake encouraged & he agrees to eat something later. Denies urge to void, brief is dry. Repositioning self in bed. IV antibiotic infused, IV to R wrist is now saline locked. Site re-wrapped with coban to protect IV access. Friends here to visit him which appeared to put him in better spirits. Instructed him to call for any needs/concerns, reoriented him to call button as he said can you remind me how to call you? Fall precautions in place, bed alarm active at all times.
[2019-03-15 20:37] LABS: Lipase 429 U/L (23-300)
[2019-03-15] MEDS: ATORVASTATIN 20 MG TABLET 40 MG PO (22:13)
[2019-03-15] MEDS: MELATONIN 3 MG TABLET 6 MG PO (22:13)
--- NOTE | 2019-03-15 23:33 | PC.NURSE ---
Evening note: Sanchez is dozing in bed, awakes easily to voice, is oriented x 3 and to situation. Told me I feel so much better today. He told me he does not remember me at all from yesterday evening shift. Verbally denies pain or nausea. No tremor, denies hallucinations, CIWA score is zero. VS stable, BP elevated at 147/85. IV antibiotic infused. Drinking sips of water & ramiro lashonda but refused dinner tray. Will try to have him drink ensure tonight, PO intake encouraged & he agrees to eat something later. Denies urge to void, brief is dry. Repositioning self in bed. IV antibiotic infused, IV to R wrist is now saline locked. Site re-wrapped with coban to protect IV access. Friends here to visit him which appeared to put him in better spirits. Instructed him to call for any needs/concerns, reoriented him to call button as he said can you remind me how to call you? Fall precautions in place, bed alarm active at all times. 2200: Patient had one loose watery green BM. I notified Celso HERNÁNDEZ who ordered us to send stool sample to lab to rule out C diff.
[2019-03-16] VITALS (10 sets, daily range): BP systolic 144–155; BP diastolic 80–91; PULSE 82–90; RESP 18; TEMP 36.4–37.8; O2SAT 93–96
[2019-03-16 01:04] LABS: Clostridium Difficile Tox PCR Negative for C. diff
[2019-03-16 05:44] LABS: Add Manual Diff / Slide Review NO; Basophils Absolute Auto 0 /uL (0-100); Basophils Percent Auto 0.2 % (0-2); Eosinophils Absolute Auto 100 /uL (0-450); Eosinophils Percent Auto 1.2 % (2-4); Hematocrit 38.5 % (41-53); Hemoglobin 12.9 g/dL (13.5-17.5); Lymphocytes Absolute Auto 1300 /uL (1100-4500); Lymphocytes Percent Auto 9.8 % (25-40); Mean Corpuscular HGB Conc 33.5 % (30-36); Mean Corpuscular Hemoglobin 29.3 PG (26-34); Mean Corpuscular Volume 87.5 fL (80-100); Monocytes Absolute Auto 1000 /uL (0-900); Monocytes Percent Auto 8.1 % (3-14); Neutrophils Absolute Auto 10500 /uL (1500-7000); Neutrophils Percent Auto 80.7 % (50-75); Platelet Count 280 X10^3/uL (150-400); Red Cell Distribution Width 13.1 % (11.6-14.8); White Blood Cell Count 12.9 X10^3/uL (4.5-11.0)
[2019-03-16] MEDS: MULTIVITAMIN 1 TABLET 1 TAB PO (08:01)
[2019-03-16] MEDS: ASPIRIN EC 81 MG TABLET PO (08:01)
[2019-03-16] MEDS: THIAMINE 100 MG TABLET PO (08:02)
[2019-03-16] MEDS: LISINOPRIL 20 MG TABLET PO (08:02)
[2019-03-16] MEDS: FOLIC ACID 1 MG TABLET PO (08:03)
[2019-03-16] MEDS: INSULIN GLARGINE 100 UNIT/ML 3ML PEN 10 UNIT SUBCUT (08:03)
[2019-03-16] MEDS: ENOXAPARIN 40 MG/0.4 ML SYRINGE SUBCUT (08:03)
[2019-03-16] MEDS: SODIUM CHLORIDE 0.9% FLUSH 10 ML IV (08:06)
[2019-03-16 09:20] LABS: Lipase 480 U/L (23-300)
--- NOTE | 2019-03-16 11:23 | PC.NURSE ---
Pt is A&Ox3 and he denies pain. BT are hypoactive. Pt is eating small amounts of yogurt and fruit smoothy drinks. He had a loose stool and is now taking a nap. Pt denies pain and is pleasant with care. UP with 1 pa and denies discomfort at this time. just stepped out earlier to run a couple of errands.
--- NOTE | 2019-03-16 11:55 | PT.IPTN ---
Current Diagnoses Acute pancreatitis without necrosis or infection, unspecified (03/10/19) Hyperglycemia, unspecified (03/10/19) Physical Therapy Treatment Note M2 PT-IP Current Condition Start: 03/13/19 15:27 Freq: NEEDED Status: Active Protocol: Document 03/13/19 14:03 RCC (Rec: 03/13/19 15:43 RCC [id number]) Physical Therapy Current Condition Current Condition Evaluation Date 03/13/19 Treatment Diagnosis nausea, vomiting, impaired gait and activity tolerance M3 PT-IP Subjective Start: 03/13/19 15:27 Freq: NEEDED Status: Active Protocol: Document 03/16/19 12:05 GGD (Rec: 03/16/19 12:18 GGD [id number]) Subjective Physical Therapy Visit Type Type Treatment Note Visit Start Time 11:30 Visit Stop Time 11:55 Total Visit Minutes 25 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 M4 PT-IP Mobility and Gait Start: 03/13/19 15:27 Freq: NEEDED Status: Active Protocol: Document 03/16/19 12:05 GGD (Rec: 03/16/19 12:18 GGD [id number]) PT-Bed Mobility Assessment Supine to Sit Supine to Sit Standby Assistance Sit to Supine Sit to Supine Standby Assistance Scooting Scooting to Edge of Bed Standby Assistance Scooting Up and Down in Bed Standby Assistance PT-Transfer Assessment Sit to and From Stand Sit to and from Stand Contact Guard Assistance Equipment Transfer Assistive Device Gait Belt Transfers Transfer Destination Bed Toilet Transfer Ability Level of Assist Contact Guard Assistance Gait Assessment Gait Gait Assistance Required: Standby Assistance Contact Guard Assist Distance (Feet) 200 Assistive Devices Assistive Device Gait Belt Gait Deviations General Gait Pattern Ataxic Decreased Stride Length Decreased Feet Clearance Wide Based Gait Factors Limiting Gait Function Factors Limiting Gait Function Decreased Activity Tolerance Difficulty Following Directions Incoordination Poor Balance Poor Safety Awareness Comments Gait Comments dynamic gait with head turns. Veering to the right with right head turns, stopping ambulating with looking up. WNL with left and looking down . M5 PT-IP Objective Assessments Start: 03/13/19 15:27 Freq: NEEDED Status: Active Protocol: Document 03/13/19 14:03 RCC (Rec: 03/13/19 15:43 RCC [id number]) Orientation Orientation/Cognition Level of Alertness Lethargic Safety Awareness Decreased Safety Awareness Comments slow, but appropriate answers to questions Gross Range of Motion Lower Extremity ROM Assessment Within Functional Limits Strength Lower Extremity Strength Hip flexion 4/5 B Knee 5/5 B flexion and extension Ankle 5/5 B DF Coordination Assessment Gross Coordination Gross Coordination WNL Assessment Finger to Nose Test Normal Performance Pronation/Supination Test Normal Performance Foot Tapping Test Normal Performance Heel on Rogers Test Normal Performance Sensation Assessment Sensation Gross Sensation WNL Muscle Tone Muscle Tone WNL Yes M6 PT-IP Treatment Start: 03/13/19 15:27 Freq: NEEDED Status: Active Protocol: Document 03/15/19 14:30 CLB (Rec: 03/15/19 16:17 CLB [id number]) Physical Therapy Treatment Exercises Exercises Ankle Pumps M7 PT-IP Assessment and Plan Start: 03/13/19 15:27 Freq: NEEDED Status: Active Protocol: Document 03/16/19 12:05 GGD (Rec: 03/16/19 12:18 GGD [id number]) PT Summary Assessment and Plan Summary Assessment Summary Pt was able to ambulate without assistive device. He did veer to right with right head turns. He was mildly impulsive and need min cue for safety. Pt improving with mobility and would benefit from skilled PT 1 x day. Frequency of Treatment Frequency Of Treatment Once a Day Treatment Plan Physical Therapy Treatment Plan Transfer Training Gait Training Therapeutic Exercise Balance Retraining Discharge Planning Neuromuscular Re-ed Recommendations To Nursing Amount of Assist Needed 1 Person Assist Discharge Recommendations PT Discharge Recommendations Home with Assistance
--- NOTE | 2019-03-16 11:55 | PT.IPTN ---
Current Diagnoses Acute pancreatitis without necrosis or infection, unspecified (03/10/19) Hyperglycemia, unspecified (03/10/19) Physical Therapy Treatment Note M2 PT-IP Current Condition Start: 03/13/19 15:27 Freq: NEEDED Status: Active Protocol: Document 03/13/19 14:03 RCC (Rec: 03/13/19 15:43 RCC [id number]) Physical Therapy Current Condition Current Condition Evaluation Date 03/13/19 Treatment Diagnosis nausea, vomiting, impaired gait and activity tolerance M3 PT-IP Subjective Start: 03/13/19 15:27 Freq: NEEDED Status: Active Protocol: Document 03/16/19 12:05 GGD (Rec: 03/16/19 12:18 GGD [id number]) Subjective Physical Therapy Visit Type Type Treatment Note Visit Start Time 11:30 Visit Stop Time 11:55 Total Visit Minutes 25 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 M4 PT-IP Mobility and Gait Start: 03/13/19 15:27 Freq: NEEDED Status: Active Protocol: Document 03/16/19 12:05 GGD (Rec: 03/16/19 12:18 GGD [id number]) PT-Bed Mobility Assessment Supine to Sit Supine to Sit Standby Assistance Sit to Supine Sit to Supine Standby Assistance Scooting Scooting to Edge of Bed Standby Assistance Scooting Up and Down in Bed Standby Assistance PT-Transfer Assessment Sit to and From Stand Sit to and from Stand Contact Guard Assistance Equipment Transfer Assistive Device Gait Belt Transfers Transfer Destination Bed Toilet Transfer Ability Level of Assist Contact Guard Assistance Gait Assessment Gait Gait Assistance Required: Standby Assistance Contact Guard Assist Distance (Feet) 200 Assistive Devices Assistive Device Gait Belt Gait Deviations General Gait Pattern Ataxic Decreased Stride Length Decreased Feet Clearance Wide Based Gait Factors Limiting Gait Function Factors Limiting Gait Function Decreased Activity Tolerance Difficulty Following Directions Incoordination Poor Balance Poor Safety Awareness Comments Gait Comments dynamic gait with head turns. Veering to the right with right head turns, stopping ambulating with looking up. WNL with left and looking down . M5 PT-IP Objective Assessments Start: 03/13/19 15:27 Freq: NEEDED Status: Active Protocol: Document 03/13/19 14:03 RCC (Rec: 03/13/19 15:43 RCC [id number]) Orientation Orientation/Cognition Level of Alertness Lethargic Safety Awareness Decreased Safety Awareness Comments slow, but appropriate answers to questions Gross Range of Motion Lower Extremity ROM Assessment Within Functional Limits Strength Lower Extremity Strength Hip flexion 4/5 B Knee 5/5 B flexion and extension Ankle 5/5 B DF Coordination Assessment Gross Coordination Gross Coordination WNL Assessment Finger to Nose Test Normal Performance Pronation/Supination Test Normal Performance Foot Tapping Test Normal Performance Heel on Rogers Test Normal Performance Sensation Assessment Sensation Gross Sensation WNL Muscle Tone Muscle Tone WNL Yes M6 PT-IP Treatment Start: 03/13/19 15:27 Freq: NEEDED Status: Active Protocol: Document 03/15/19 14:30 CLB (Rec: 03/15/19 16:17 CLB [id number]) Physical Therapy Treatment Exercises Exercises Ankle Pumps M7 PT-IP Assessment and Plan Start: 03/13/19 15:27 Freq: NEEDED Status: Active Protocol: Document 03/16/19 12:05 GGD (Rec: 03/16/19 12:18 GGD [id number]) PT Summary Assessment and Plan Summary Assessment Summary Pt was able to ambulate without assistive device. He did veer to right with right head turns. He was mildly impulsive and need min cue for safety. Frequency of Treatment Frequency Of Treatment Twice a Day Treatment Plan Physical Therapy Treatment Plan Transfer Training Gait Training Therapeutic Exercise Balance Retraining Discharge Planning Neuromuscular Re-ed Recommendations To Nursing Amount of Assist Needed 1 Person Assist Discharge Recommendations PT Discharge Recommendations Home with Assistance
[2019-03-16] MEDS: ACETAMINOPHEN 325 MG TABLET 650 MG PO (12:04)
[2019-03-16] MEDS: ONDANSETRON 4 MG/2 ML INJ IV (12:04)
--- NOTE | 2019-03-16 14:48 | DIET.PN ---
Pt awake and cheerful. States he feels much better. Ate good breakfast (25% per RN note, but states she brought other foods as well - all low fat per our discussion yesterday) Diet:low fat 25g Assessment: Appears to be tolerating low fat diet Plan: FARHAD pugh. F/U w;GI specialist
--- NOTE | 2019-03-16 15:05 | P.DS_ITS ---
History of Present Illness Date Patient Seen: 03/10/19 Chief complaint: NAUSEA, VOMITING Narrative: Written by Jennifer HERNÁNDEZ: Vamsi Cabello is a pleasant 58 y.o. male with a minimal medical history including hypertension who presented to the ED with abdominal pain he has had since 1400 one day ago. He thought he had food poisoning from [place] food he had eaten for lunch. He states the pain is located in his epigastric area and had been worsening since the initial onset. in the room states he vomited [address] over to [place] from [place]. States the vomitus was what he had eaten for lunch. He states a 6-7/10 level of pain and is distressed in the room when I was taking his history. Patient states he has one to two alcoholic drinks every other week and denies binge drinking. In the ED, he has a mildly elevated white count of 13.5 and a very elevated lipase of 14,280. Discharge Providers Date of admission: 03/10/19 04:15 Discharge Date: 03/16/19 Consults: 03/13/19 12:55 Consult to Physical Therapy Evaluate & Treat Comment: Physician Instructions: Evaluate and Treat 03/13/19 21:03 Consult to Dietitian, Adult Routine Comment: Reason For Exam: EtOH 03/14/19 08:41 Consult to General Surgery Routine Comment: Consulting Provider: Bakari Garces Reason for consultation: ileus vs SBO Has provider been notified: Yes 03/15/19 15:07 Consult to Occupational Therapy Evaluate & Treat Comment: Physician Instructions: Evaluate and treat Discharge provider: Ana Luisa Guzman DO Summary Discharge Diagnosis: Sanchez Cabello is a 58-year-old male with a past medical history significant for hypertension who presented for abrupt onset abdominal pain and was found to have acute pancreatitis. 1. Acute pancreatitis, present on admission. Resolved. 2. Acute delirium versus alcohol withdrawal, not present on admission. Resolved. 3. Acute ileus, present on admission. Resolved. 4. UTI ruled out. 5. Essential hypertension, chronic, present on admission. Stable. 6. Prediabetes, chronic, present on admission. Stable. Hospital Course: Sanchez Cabelol is a 58-year-old male with a past medical history significant for hypertension who presented for abrupt onset abdominal pain and was found to have acute pancreatitis. 1. Acute pancreatitis, present on admission. Resolved. -Etiology possibly due to alcohol but was somewhat unclear with vague report of use? No cholelithiasis, biliary or common bile duct dilatation. Hypertriglyceridemia ruled out. Medication side effect less likely. IgG subclass 4 ordered and pending with PCP Dr. Jenkins to follow up. -Continued to advance diet which was well tolerated. Discharged on low fat, soft, bland diet. -Continued IV zofran for nausea and vomiting and hydrocodone as needed for pain. -Initial Lipase 14,280. Lipase trended down and stayed in 300-400s. WBC peaked at 19.9 and trended down to 12's. Both Lipase and WBC residually elevated due to inflammatory response of acute pancreatitis. 2. Acute delirium versus alcohol withdrawal, not present on admission. Resolved. -Code stroke was called on 03/13 for reported left arm weakness by nurse and possible hypoxemic episode. Patient had no focal neurological deficits and NIH score was 0. -CT brain did not demonstrate any acute intracranial abnormalities. -Ordered MR stroke protocol but canceled due to acute delerium and the potential to exacerbate symptoms. -CTA performed which was negative for PE and demonstrated bibasilar atelectasis. Antibiotics were discontinued as patient has no other infectious signs or symptoms, WBC trended down without antibiotics, procalcitonin negative at 0.09 and ABG did not demonstrate hypoxemia and patient was quickly off oxygen. -EKG performed which demonstrated sinus tachycardia without any acute ischemic changes such as ST elevation or depression. Troponin was within normal limits. -Suspect alcohol withdrawal as patient was diaphoretic, tachycardic, mildly anxious, and confused with vague reports of amount of alcohol consumption and presented with acute pancreatitis. Started CIWA protocol with highest CIWA score 18 and symptoms readily improved and resolved. 3. Acute ileus, present on admission. Resolved. -Secondary to acute inflammation from pancreatitis. -Continued to advance diet and ambulate often. -General surgery evaluated and recommended continued ambulation and to slowly advance diet. Signed off. -Ileus resolved spontaneously and patient had normal bowel movements and tolerated advancement of diet. 4. UTI ruled out. -Urine culture had no growth. -Continued Zosyn and discontinued after complete course for UTI treatment. 5. Essential hypertension, chronic, present on admission. Stable. -Continued home dose of lisinopril. 6. Prediabetes, chronic, present on admission. Stable. -Hemoglobin A1C 6.1%. -Continued [facility] blood glucose checks and low-dose correctional scale insulin. -Patient will need to be on a heart healthy/carbohydrate consistent diet once over acute inflammatory response of pancreatitis in outpatient setting. Exam Vital Signs (past 8 hours): - 03/16/19 08:02 03/16/19 08:20 03/16/19 08:30 Temperature 97.6 F Pulse Rate 84 84 84 Respiratory Rate 18 18 Blood Pressure 144/91 H 144/91 H Pulse Oximetry 96 96 03/16/19 08:40 03/16/19 10:56 03/16/19 12:04 Temperature 100.0 F H Pulse Rate 82 86 Respiratory Rate 18 18 Blood Pressure Pulse Oximetry 94 96 03/16/19 13:00 03/16/19 13:28 Temperature 100 F H 98.2 F Pulse Rate 90 Respiratory Rate 18 Blood Pressure 151/80 H Pulse Oximetry 93 Fraction of Inspired Oxygen 21 Oxygen Delivery Method Room Air Oxygen Flow Rate 0 Narrative Exam Narrative: General: Older male sitting in bed and in no acute distress, well-developed, well-nourished, and appropriately interactive. Confusion resolved. HEENT: Normocephalic, atraumatic. External ears without defect. Pupils equal, round, and reactive to light. Anicteric sclerae, moist conjunctivae, and no lid lag. Odd gaze and appears to look above or below eye level. Neck: Supple with full range of motion. No jugular venous distension. No lymphadenopathy or thyromegaly. Cardiovascular: Regular rhythm and rate without murmurs, rubs, or gallops appreciated. Pulmonary: Clear to auscultation bilaterally without crackles, wheezes, or rhonchi. Normal respiratory effort with no use of accessory muscles. Abdomen: Soft, obese, bowel sounds present, nontender, nondistended. No rebound or guarding. No hepatosplenomegaly or masses appreciated. Extremities: No clubbing, cyanosis, or edema. Skin: Normal temperature, turgor, and texture; no rash, ulcers, or subcutaneous nodules appreciated. Neurological: Cranial nerves grossly intact. Psychiatric: Alert and oriented x3. Normal mood with flat affect. Confusion resolved. Objective Labs Result Diagrams: 03/16/19 05:20 03/15/19 07:30 Labs: Laboratory Results - last 24 hr 03/15/19 03/15/19 03/15/19 07:30 07:30 23:58 WBC RBC Hgb Hct MCV MCH MCHC RDW Plt Count Neut % (Auto) Lymph % (Auto) [place] % (Auto) Eos % (Auto) Baso % (Auto) Neut # (Auto) Lymph # (Auto) [place] # (Auto) Eos # (Auto) Baso # (Auto) Sodium 139 Potassium 3.8 Chloride 102 Carbon Dioxide 31 BUN 33 H Creatinine 0.90 Estimated GFR > 60.0 BUN/Creatinine Ratio 36.7 H Glucose 216 H Calcium 8.6 Total Bilirubin 0.7 AST 32 ALT 28 Alkaline Phosphatase 64 Total Protein 6.5 Albumin 3.5 Globulin 3.0 Albumin/Globulin Ratio 1.2 Lipase 429 H Procalcitonin C. difficile Tox (PCR) Negative for c. diff 03/16/19 03/16/19 03/16/19 05:20 05:20 05:20 WBC 12.9 H RBC 4.40 L Hgb 12.9 L Hct 38.5 L MCV 87.5 MCH 29.3 MCHC 33.5 RDW 13.1 Plt Count 280 Neut % (Auto) 80.7 H Lymph % (Auto) 9.8 L [place] % (Auto) 8.1 Eos % (Auto) 1.2 L Baso % (Auto) 0.2 Neut # (Auto) 33295 H Lymph # (Auto) 1300 [place] # (Auto) 1000 H Eos # (Auto) 100 Baso # (Auto) 0 Sodium Potassium Chloride Carbon Dioxide BUN Creatinine Estimated GFR BUN/Creatinine Ratio Glucose Calcium Total Bilirubin AST ALT Alkaline Phosphatase Total Protein Albumin Globulin Albumin/Globulin Ratio Lipase 480 H Procalcitonin 0.05 C. difficile Tox (PCR) Discharge Plan Discharge Plan Patient Disposition: Home Discharge comment: Your being discharged home. Please follow-up with your PCP, Dr. Jenkins, at your scheduled appointment. You had acute pancreatitis that was likely related to alcohol use, as well as, alcohol withdrawal. Please avoid alcohol. You will need to follow up with a GI doctor in 4-[address] to have repeat CT scan of your abdomen to assess your pancreas and to further assess cause of pancreatitis. You have a blood test pending to look for autoimmune pancreatitis that your doctor or a GI doctor can follow up on. Please follow a low-fat diet for the next 1 week. You were provided a work excuse letter. You have prediabetes and this needs to be addressed. Please implement lifestyle modification including: Diet and exercise as discussed. Discharge Med Rec/Prescriptions Prescriptions: Continued lisinopril [Prinivil] 20 MG tablet 20 mg PO Q DAY Qty: 30 RF: 12 famciclovir 250 MG tablet 250 mg PO SEE INSTRUCTIONS PRNQty: 30 RF: 5 Discontinued hydrochlorothiazide 25 MG tablet 25 mg PO QDAY Qty: 30 RF: 12 Follow up/Referrals: Jac Jenkins MD [Non-Staff] - 1 Week Provider Discharge Instructions Diet: Low-fat Activity: Activity as tolerated Visit Report/Discharge Packet Instructions: Eating a Diet Low in Saturated Fat, Trans Fat, and Cholesterol, Acute Pancreatitis, Delirium Tremens, [place] Diet, Fat-Restricted Diet, Soft Diet, DI for Delirium Tremens, DI for Drug or Alcohol Withdrawal, DI for Prediabetes Discharge Data Attending Provider: Ashley Amin Admit Date/Time: 03/10/19 04:15 Discharges patient from system. Discharge Date/Time: 03/16/19 16:00 Quality VTE Deep Vein Thrombosis/Pulmonary Embolism Present on Admission: No
--- NOTE | 2019-03-16 15:18 | CM.DPC ---
DCP Discharge Home Per MD, pt is medically stable to d/c home today with no identified barriers to discharge and spouse able to provide transport. Per PT, no device or HH needed and safe for d/c home with spouse assist. MD wrote note for pt that he will need 2 weeks off work. Plan: Patient to d/c home today via spouse POV and no SW needs at this time. CAMILLE Antony
--- NOTE | 2019-03-16 15:55 | OT.IP.EVAL ---
Current Diagnoses Acute pancreatitis without necrosis or infection, unspecified (03/10/19) Hyperglycemia, unspecified (03/10/19) Past Medical History (Last Updated 03/10/19 @ 04:38 by Mckay Uriostegui MD) Essential hypertension (Acute) Hypertension (Acute) Surgical History (Last Reviewed 03/10/19 @ 04:38 by Mckay Uriostegui MD) History of umbilical hernia repair (Acute) Occupational Therapy Inpatient Evaluation/Re-Eval M1 PT/OT-IP Prior Functional Status Start: 03/13/19 15:27 Freq: NEEDED Status: Active Protocol: Document 03/13/19 14:03 [facility] (Rec: 03/13/19 15:43 [facility] [id number]) Medical Review Prior Functional Status Medical History Reviewed Yes Mobility and Gait indep community ambulator without device Activities of Daily Living and IADL's indep I/ADLs Social History Household Members spouse Living Arrangements House Number of Floors (Floors) One Floor Number of Stairs To Enter/Railing? 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 PMH: HTN, otherwise unremarkable. Pt had an episode on 03/13/19 between 4-5 AM where a code stroke was called, reportedly pt lost function in L arm, and had visual disturbance. Head CT was negative. Chest radiograph showed possible L pneumonia per Dr. Boss note. During this episode pt found to have low O2 readings, as well as encephalopathy. Pt has since regained LUE strength, denies any visual disturbances, feeling better but still reports confusion. M1 PT/OT-IP Prior Functional Status Start: 03/15/19 15:56 Freq: NEEDED Status: Active Protocol: Document 03/16/19 08:40 [facility] (Rec: 03/16/19 15:55 [facility] [id number]) Medical Review Prior Functional Status Medical History Reviewed Yes Mobility and Gait indep community ambulator without device Activities of Daily Living and IADL's indep I/ADLs Social History Household Members spouse Living Arrangements House Number of Floors (Floors) One Floor Number of Stairs To Enter/Railing? 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 PMH: HTN, otherwise unremarkable. Pt had an episode on 03/13/19 between 4-5 AM where a code stroke was called, reportedly pt lost function in L arm, and had visual disturbance. Head CT was negative. Chest radiograph showed possible L pneumonia per Dr. Boss note. During this episode pt found to have low O2 readings, as well as encephalopathy. Pt has since regained LUE strength, denies any visual disturbances, feeling better but still reports confusion. M2 OT-IP Current Condition Start: 03/15/19 15:56 Freq: Status: Active Protocol: Document 03/16/19 08:40 [facility] (Rec: 03/16/19 15:55 [facility] [id number]) Occupational Therapy Current Condition Current Condition Evaluation Date 03/16/19 Treatment Diagnosis Acute Pancreatitis Diagnosis Onset Date 03/15/19 M3 OT- IP Subjective and Pain Start: 03/15/19 15:56 Freq: Status: Active Protocol: Document 03/16/19 08:40 [facility] (Rec: 03/16/19 15:55 [facility] [id number]) OT- Subjective Occupational Therapy Visit Type Type Initial Evaluation Visit Start Time 08:40 Visit Stop Time 10:05 Total Visit Minutes 85 Occupational Therapy Visit Comments Patient Comments Pt agreeable to shower and do cognitive assessments. Patient/Caregiver Goals Pt wanting to go home. OT Pain Assessment Pain When Pain Assessed At Rest Pain Present Pain Present Denied Pain M4 OT- IP ADL's Start: 03/15/19 15:56 Freq: Status: Active Protocol: Document 03/16/19 08:40 [facility] (Rec: 03/16/19 15:55 [facility] [id number]) OT ADL-Dressing General Eval Upper Body Dressing Ability Standby Assistance Lower Body Dressing Ability Standby Assistance Comments OT Dressing Comments Pt having to sit from LB dressing needs. OT ADL-Toileting General Evaluation Toileting Ability Standby Assistance Comments OT Toileting Comments Pt having to use grab bar to help get up from the toilet. Pt states have counter on the left side at home. OT ADL-Bathing Bathing Type Bathing Type Shower General Evaluation Bathing Ability Minimal Assistance Areas Needing Assistance Wash/Dry Back Devices Bathing Equipment Shower Chair with Arms Comments OT Bathing Comments Pt's able to assist pt in the shower, pt able to stand for the whole task, however needing to assist to to dry off and for dressing needs. M5 OT- IP IADL's Start: 03/15/19 15:56 Freq: Status: Active Protocol: Document 03/16/19 08:40 [facility] (Rec: 03/16/19 15:55 [facility] [id number]) OT-Instrumental Activities of Daily Living Home Safety Awareness Awareness of Need for Assistance at Home Good Awareness Ability to Problem Solve Emergency Able to Problem Solve Situations Money Management Money Management Caregiver Provides Assistance Driving Driving Comments At this time, pt and both realize no driving at this time. M6 OT- IP Functional Cognition Start: 03/15/19 15:56 Freq: Status: Active Protocol: Document 03/16/19 08:40 [facility] (Rec: 03/16/19 15:55 [facility] [id number]) Cognitive Factors Limiting Selfcare Function Cognitive Ability Level of Alertness Alert Patient Orientation Name Year Place Situation Attention Span Ability Capable of Focused Attention Capable of Sustained Attention Ability to Follow Commands Able to Follow One Step Commands Memory Description Short Term Impaired Working Impaired Safety Awareness Underestimates Need for Assistance Problem Solving Ability Unable to Identify Errors Needs Assist to Identify Solutions Executive Function Ability Unable to Filter Distractions Unable to Organize Plans Unable to Remember Details Abstract Thinking Ability Unable to Make Generalizations Unable to Understand Generalizations Unable to Draw Logical Conclusions Cognitive Tests SLUMS Pt scored 17/30 which implies cognitive deficits, normal score for pt's education 25/30 . Pt having difficulty with math calculations, short term memory , drawing a clock, stating numbers backwards. Cognitive Comments Cognitive Assessment Comments Pt able to answer all home safety questions with good accuracy. Pt at times needing extra time to come up with answers and feels that he is just not able to think clearly . Pt unable to complete [place] [employer] without verbal cues as pt forgot the directions, therefore as the assesssment looks at visual scanning, memory, and executive planning, suggest that pt not drive at this time . OT- Vision and Hearing OT- Hearing Assessment OT- Hearing Assessment WFL OT- Vision Assessment Visual Acuity WFL Glasses For Reading M7 OT- IP Mobility and Balance Start: 03/15/19 15:56 Freq: Status: Active Protocol: Document 03/16/19 08:40 [facility] (Rec: 03/16/19 15:55 [facility] [id number]) OT- Bed Mobility Assessment Supine to Sit Supine to Sit Assist Independent Sit to Supine Sit to Supine Assist Independent OT-Transfer Assessment Sit to and From Stand Sit to and from Stand Standby Assistance Transfers Transfer Ability Standby Assistance Technique Transfer Destination Bed Chair Shower Stall Transfer Technique Stand Step Pivot Devices Transfer Assistive Devices Gait Belt Comments Mobility Comments Pt able to walk in the room with slight loss of balance to the right but able to catch himself. Pt states feels weaker on his right leg. OT- Balance Assessment Sitting Balance and Reactions Static Sitting Balance Ability Normal Dynamic Sitting Balance Ability Normal Standing Balance and Reactions Static Standing Balance Ability Good Dynamic Standing Balance Ability Fair M8 OT- IP Objective Assessments Start: 03/15/19 15:56 Freq: Status: Active Protocol: Document 03/16/19 08:40 [facility] (Rec: 03/16/19 15:55 [facility] [id number]) OT Gross Range of Motion Upper Extremity Range of Motion Assessment Within Functional Limits OT Strength Upper Extremity Strength Assessment Within Functional Limits OT- Coordination Assessment Upper Extremity Finger to Nose Test Within Functional Limits OT-Muscle Tone Assessment Muscle Tone WNL Yes OT Sensation Assessment Comments Summary Comments WFl for light touch M9 OT- IP Assessment and Plan Start: 03/15/19 15:56 Freq: Status: Active Protocol: Document 03/16/19 08:40 [facility] (Rec: 03/16/19 15:55 [facility] [id number]) OT Summary Assessment and Plan Potential Rehabilitation Potential Good Analytic Complexity at Evaluation Low Summary OT Impairments Balance Functional Cognition Functional Mobility Bathing Progress Towards Goals Progressing Toward Goals Assessment Summary Pt low complexity and main barriers are decreased dynamic balance, decreased functional cognition, and activity tolerance, and would benefit from outpt PT and OT at this time. Pt is far from baseline for cognitive and overall balance needs and not suggested to drive or go back to work at this time. Pt to go home with to assist with needs. Goals Patient/Caregiver Education Goal Caregiver Independent Assisting Patient Days to Meet Goals 1 Frequency of Treatment Frequency Of Treatment Once a Day Treatment Plan OT Treatment Plan Functional Cognition Training Functional Mobility Patient/Family Education Discharge Planning Discharge Recommendations OT Discharge Recommendations Home with Assistance Outpatient PT Home Equipment Needs shower chair
== END 2019-03-16 16:00 | disposition home or self-care (01) | DRG 439 ==
LOC: ED 03-10 00:07 → AC 03-10 04:16
PROVIDERS: Family Medicine; Internal Medicine; Nurse Practitioner Adult Health; Admitting Provider Nurse Practitioner Family; Emergency Provider Emergency Medicine; Visit Provider Nurse Practitioner Family
DX: K85.90 Acute pancreatitis without necrosis or infection, unspecified (principal); F10.231 Alcohol dependence with withdrawal delirium; Z68.41 Body mass index [BMI] 40.0-44.9, adult; E66.01 Morbid (severe) obesity due to excess calories; R73.9 Hyperglycemia, unspecified; R41.0 Disorientation, unspecified; I10 Essential (primary) hypertension; R73.03 Prediabetes
CPT/HCPCS: 36415; 36591; 36600; 70450; 71045; 71275; 74018; 74177; 76705; 80053; 80061; 80202; 81001; 82550; 82805; 82962; 83036; 83690; 83735; 83880; 84145; 84484; 85025; 85379; 85610; 85730; 87086; 87493; 93005; 93010; 94640; 94760; 94762; 96361; 96374; 96375; 96376; 97116; 97127; 97162; 97165; 97530; 97535; 99233; 99282; 99285; C9113; J1170; J1650; J1885; J1956; J2060; J2270; J2405; J2543; J7050; J7613; Q9967

== ENCOUNTER → 2019-05-18 08:01 | Outpatient (CLI) | payer BC, OTHER, SELFPAY ==
[2019-03-14 20:14] VITALS: BMI 40.4
[2019-05-18 09:31] LABS: Alanine Aminotransferase 22 IU/L (21-72); Albumin 3.9 g/dL (3.5-5.0); Albumin Globulin Ratio 1.3 (1.0-2.8); Alkaline Phosphatase 57 U/L (38-126); Aspartate Aminotransferase 17 IU/L (17-59); Bilirubin Total 0.6 mg/dL (0.2-1.3); Blood Urea Nitrogen 15 mg/dL (9-20); Carbon Dioxide 28 mmol/L (22-32); Chloride 102 mmol/L (98-107); Estimated Glomerular Filt Rate > 60.0 mL/min (>60); Globulin 3.1 g/dL (1.7-4.1); Glucose 111 mg/dL (70-100); HEMOLYSIS < 15 (0-50); Lipase 348 U/L (23-300); Potassium 4.3 mmol/L (3.4-5.1); Sodium 139 mmol/L (137-145)
[2019-05-20 16:43] LABS: IgG Subclass 1 400 mg/dL (382-929); IgG Subclass 2 444 mg/dL (241-700); IgG Subclass 3 18 mg/dL (22-178); IgG Subclass 4 296.8 mg/dL (4.0-86.0); IgG Total 1164 mg/dL (600-1640)
== END ==
PROVIDERS: Visit Provider Internal Medicine Gastroenterology
DX: K85.90 Acute pancreatitis without necrosis or infection, unspecified (principal)
CPT/HCPCS: 36415; 80053; 82784; 82787; 83690

== ENCOUNTER → 2019-05-25 06:20 | Outpatient (CLI) | payer BC, OTHER, SELFPAY ==
[2019-03-14 20:14] VITALS: BMI 40.4
--- NOTE | 2019-05-25 06:29 | DI.CT.S_ITS ---
PROCEDURE: CT ABDOMEN WO/W CON INDICATIONS: Acute pancreatitis w/o necrosis or infection TECHNIQUE: Noncontrast 3 mm thick sections acquired through the pancreas. After the administration of intravenous contrast, 3 mm thick pancreatic-phase images acquired from the diaphragm to the iliac crests. 3 mm thick coronal and sagittal reformats were performed. For radiation dose reduction, the following was used: automated exposure control, adjustment of mA and/or kV according to patient size. COMPARISON: [facility], CT, CT ABDOMEN PELVIS W CON, 03/10/2019, 2:50. FINDINGS: Image quality: Excellent. Lung bases: There is minimal atelectasis. Heart size is normal. Pancreas: There is a large peripherally enhancing necrotic fluid collection involving the body and tail of the pancreas measuring approximately 1.7 x 8.9 x 9.5 cm. The finding is likely chronic given history of pancreatitis in February 2019 and therefore likely represents walled off necrosis, versus an acute necrotic collection in an acute setting. There is associated fat stranding and fluid on the collection compatible with sequela of pancreatitis. Internal heterogeneity is demonstrated in the collection compatible with debris. The collection abuts the stomach along the greater curvature. The pancreatic head and uncinate process demonstrate normal enhancement without pancreatic duct dilatation. Other solid organs: There is mild focal fatty infiltration in the anterior left hepatic lobe. Gallbladder is distended without calcified gallstones or wall thickening. Biliary system is non dilated. Spleen is normal in size and enhancement enlarged, measuring up to 15.2 cm, increased in size from the prior study. The kidneys demonstrate no hydronephrosis. Peritoneum and bowel: Visualized bowel loops demonstrate normal wall thickness and caliber. No free fluid or air. Nodes and vessels: No retroperitoneal or mesenteric adenopathy by size criteria. Aorta and inferior vena cava are normal in size. The splenic vein is occluded with prominent splenic varices and numerous collateral vessels demonstrated within the left upper quadrant. There is also a recanalized paraumbilical vein. Bones: No suspicious bony lesions. No vertebral body compression fractures. Miscellaneous: No ventral hernias. IMPRESSION: 1. Necrotic collection involving the majority of the pancreatic body and tail is likely chronic consistent with walled off necrosis. The collection abuts the stomach and may be amenable to transgastric drainage. 2. Associated occlusion of the splenic vein with findings consistent with portal hypertension including numerous collaterals in the left upper quadrant, a recanalized paraumbilical vein, and splenomegaly. 3. No pancreatic duct dilatation or discrete mass identified. Recommend followup to demonstrate resolution of the walled off necrosis. Dictated by: Sanchez Arriaga M.D. on 05/25/2019 at 15:24 Approved by: Sanchez Arriaga M.D. on 05/25/2019 at 15:37
== END ==
PROVIDERS: Visit Provider Internal Medicine Gastroenterology
DX: K85.90 Acute pancreatitis without necrosis or infection, unspecified (principal); I82.890 Acute embolism and thrombosis of other specified veins; R16.1 Splenomegaly, not elsewhere classified
CPT/HCPCS: 74170; Q9967

== ENCOUNTER → 2021-01-23 08:07 | Outpatient (CLI) | payer OTHER, SELFPAY ==
[2019-03-14 20:14] VITALS: BMI 40.4
--- NOTE | 2021-01-23 | DI.CT.S_ITS ---
PROCEDURE: CT ABDOMEN W CON INDICATIONS: Acute pancreatitis with infected necrosis, unspeci TECHNIQUE: After the administration of intravenous contrast, 5 mm thick sections acquired from the diaphragm to the iliac crests. 5 mm coronal and sagittal reformats were performed. For radiation dose reduction, the following was used: automated exposure control, adjustment of mA and/or kV according to patient size. COMPARISON: [facility], CT, CT ABDOMEN WO/W CON, 05/25/2019, 6:50. [facility], CT, CT ABDOMEN PELVIS W CON, 03/10/2019, 2:50. Outside Facility, [facility], CT ABDOMEN/PELVIS WITH CONTRAST, 11/10/2019, 14:33. FINDINGS: Image quality: Excellent. Lung bases: Lung bases are clear. Heart size is normal. Solid organs: Liver is normal in size and enhancement. Gallbladder has been resected . Biliary system is non dilated. Pancreas enhances normally near the pancreatic head and neck. Much of the pancreatic tail and a portion of the pancreatic body appears to have been resected related to a large pancreatic pseudocyst in that area. 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 No adrenal nodules. Kidneys demonstrate normal size and enhancement, without hydronephrosis. Peritoneum and bowel: Bowel loops demonstrate normal wall thickness and caliber. No free fluid or air. Nodes and vessels: No retroperitoneal or mesenteric adenopathy by size criteria. Aorta and inferior vena cava are normal in size. Miscellaneous: No ventral hernias. IMPRESSION: Prior cholecystectomy, prior subtotal pancreatectomy, prior splenectomy, with a small portion of enhancing splenic parenchyma remaining at the upper medial left upper quadrant border near the undersurface of the left hemidiaphragm. Currently no inflammatory change or biliary distention is seen involving the remaining pancreas. Postsurgical resection clips are seen near the upper gastric border. Colonic obstipation is noted within the transverse colon and a portion of the descending colon. Dictated by: Marco Johnson M.D. on 01/23/2021 at 14:38 Approved by: Marco Johnson M.D. on 01/23/2021 at 14:44
== END ==
PROVIDERS: PCP Family Medicine; Referring Provider Family Medicine; Visit Provider Internal Medicine Gastroenterology
DX: K85.92 Acute pancreatitis with infected necrosis, unspecified (principal); Z90.49 Acquired absence of other specified parts of digestive tract; Z90.81 Acquired absence of spleen
CPT/HCPCS: 74160; Q9967